=== PATIENT | male | born 1975 | race Hispanic/Latino ===

== ENCOUNTER 2020-06-05 16:53 | Inpatient (IN) | payer SELFPAY ==
[2020-06-05] VITALS (8 sets, daily range): BP systolic 101–174; BP diastolic 69–98; PULSE 78–93; RESP 14–22; TEMP 36.4–37.1; O2SAT 97–100; BMI 22.8
--- NOTE | ~2020-06-05 | CT_ITS ---
EXAMINATION: CT brain wo [facility] EXAM DATE: 06/05/2020 18:26 INDICATION: Dizziness. Weakness, elevated blood sugar. TECHNIQUE: Spiral CT of the head was performed without contrast. Axial, coronal and sagittal images were reviewed. The dose-length product (DLP) for this examination was 605.33 mGy-cm. The exposure w as tailored according to patient size, and iterative reconstruction (ASIR) was used as additional dos e reduction technique. Comparison is made to prior examination from 05/30/2020. FINDINGS: There is no acute intraparenchymal hemorrhage. No evidence of intraparenchymal brain mass lesion. No evidence of acute infarction. There is no mass effect or midline shift. The ventricles are normal in size. There are no extra-axial collections. There are no acute calvarial fractures. T he orbits are unremarkable. Soft tissue is unremarkable. The visualized sinuses and mastoid air mali ls are well aerated. IMPRESSION: 1. No acute intracranial findings. Reviewed, dictated and finalized at location A.
--- NOTE | ~2020-06-05 | CT_ITS ---
EXAMINATION: CTA brain carotid DATE: 06/07/2020 19:26 INDICATION: Brainstem stroke. TECHNIQUE: Computed tomographic angiography (CTA) of the head was performed without and with 100 mL O mnipaque-350 intravenous contrast. CTA of the neck was performed with intravenous contrast. The dose- length product was 1690.24 mGy-cm. Maximum intensity projection and volume rendered 3D-reconstruction s were created by the technologist on a separate workstation. COMPARISON: Head CT 06/05/2020, brain MRI 06/06/2020 FINDINGS: HEAD CTA: There is no intracranial hemorrhage, acute infarction, or abnormal intracranial mass lesion . The ventricles are normal in size. The mastoid air cells are normal. There is mild mucosal thickeni ng in the paranasal sinuses. The orbits are normal. Left vertebral artery is dominant. There is no si gnificant stenosis of basilar artery or the posterior cerebral arteries. There is no significant sten osis of the intracranial internal carotid arteries or anterior or middle cerebral arteries. Anterior communicating artery is normal. The posterior communicating arteries are normal. There is no aneurysm . NECK CTA: There are no pathologically enlarged lymph nodes. There is no significant stenosis of the v ertebral arteries. There is plaque in the proximal internal carotid arteries. There is 0% stenosis of the proximal right internal carotid artery relative to normal distal artery lumen diameter (NASCET c riteria). There is 38% stenosis of the proximal left internal carotid artery relative to normal dista l artery lumen diameter. Tooth 30 demonstrates periapical lucencies. Tooth 19 demonstrate a carious l esion and periapical lucencies. There is mild cervical spondylosis. IMPRESSION: 1. Normal brain. No aneurysm or significant intracranial internal stenosis. 2. 0% stenosis of the proximal right internal carotid artery relative to normal distal artery lumen d iameter (NASCET criteria). 3. 38% stenosis of the proximal left internal carotid artery relative to normal distal artery lumen d iameter. 4. Dental disease. Reviewed, dictated and finalized at location A. IMPRESSION: 1. Normal brain. No aneurysm or significant intracranial internal stenosis. 2. 0% stenosis of the proximal right internal carotid artery relative to normal distal artery lumen diameter (NASCET criteria). 3. 38% stenosis of the proximal left internal carotid artery relative to normal distal artery lumen diameter. 4. Dental disease.
--- NOTE | ~2020-06-05 | MR_ITS ---
EXAMINATION: MR brain IAC wo/w con DATE: 06/08/2020 10:18 INDICATION: Brainstem stroke. TECHNIQUE: Magnetic resonance imaging (MRI) of the brain, brainstem, and internal auditory canals was performed without and with 13 mL MultiHance intravenous contrast. Sequences included sagittal and ax ial T1-weighted FSE, axial diffusion-weighted FS EPI, axial T2*-weighted GRE, axial T2-weighted FLAIR Propeller, axial T2-weighted Propeller, small ebcib-zu-iywj coronal FIESTA, small ozmwd-ae-fttz jimmy nal T1-weighted FSE, and small pqsaq-rk-hvdg axial T1-weighted SPGR. Postcontrast sequences included axial T1-weighted FSE, small hrolj-tx-jcay coronal T1-weighted FSE, and small qzonk-zd-iyed axial T1- weighted SPGR. Apparent diffusion coefficient (ADC) maps were created. COMPARISON: Brain MRI 06/06/2020, head CT 06/07/2020 FINDINGS: There is increased T2-weighted signal intensity in the jadyn with sparing of the periphery a nd involvement of the corticospinal tracts. There is no intracranial hemorrhage, acute infarction, or abnormal intracranial mass lesion. The ventricles are normal in size. The orbits are normal. There i s mild mucosal thickening in the paranasal sinuses. The mastoid air cells are normal. IMPRESSION: 1. 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 Reviewed, dictated and finalized at location A. IMPRESSION: 1. Stable pontine disease, which may be osmotic demyelination syndrome or chron ic small vessel ischemic disease.
--- NOTE | ~2020-06-05 | XR_ITS ---
EXAMINATION: XR chest 1V portable EXAM DATE: 06/05/2020 18:34 INDICATION: Cough, weakness, elevated blood sugar. TECHNIQUE: Portable AP frontal chest x-ray was obtained. Comparison is made to prior examination from 05/30/2020. FINDINGS: The lungs are clear. There are no pleural effusions. Cardiac silhouette is prominent but magnified on this AP technique. There is no pneumothorax suspected. The bones and soft tissues are unremarkable. There is no significant interval change. IMPRESSION: No acute cardiopulmonary findings. Reviewed, dictated and finalized at location A.
--- NOTE | ~2020-06-05 | MR_ITS ---
EXAMINATION: MR brain/brain stem wo/w con EXAM DATE: 06/06/2020 10:27 INDICATION: Weakness in legs, blurred vision. TECHNIQUE: Magnetic resonance imaging (MRI) of the brain/brain stem obtained without contrast. Sagit wili T1, axial diffusion, gradient echo (T2*), T1, T2, FLAIR sequences obtained. Patient was then inj ected with 13 cc intravenous Multihance contrast. Axial and coronal postcontrast T1 weighted sequence s obtained. Correlation is made to head CT from 06/05/2020. FINDINGS: Symmetric vaguely increased T2 signal intensity within the jadyn bilaterally. Could be eithe r artifactual given that this is subtle finding. Mild pontine myelolysis would be another considerati on in the appropriate clinical setting. There are no areas of restricted diffusion to suggest acute infarction. There is no acute hemorrhage seen on the T2*, a hemosiderin sensitive sequence. No intraparenchymal brain mass. The ventricles a re normal in size. There are no extra-axial collections. Flow voids are seen in the cerebral arteri es on the T2-weighted sequences consistent with their expected patency. The orbits are unremarkable. Soft tissue is unremarkable. IMPRESSION: Vaguely increased symmetric T2 signal intensity within jadyn, could be artifactual or mild pontine myelolysis in the appropriate clinical setting. Reviewed, dictated and finalized at location G.
[2020-06-05 17:06] LABS: Glucose Point of Care > 500 (65-105)
[2020-06-05 17:23] LABS: Basophils Absolute Auto 0.1 K/mm3 (0.0-0.1); Basophils Percent Auto 0.5 % (0.2-1.2); Eosinophils Absolute Auto 0.2 K/mm3 (0-0.3); Eosinophils Percent Auto 2.6 % (0-4.4); Hematocrit 37.3 % (42.0-52.0); Hemoglobin 13.1 g/dL (14.0-18.0); Immature Granulocyte Absolute 0.02 K/mm3 (0.00-0.031); Immature Granulocyte Percent A 0.2 % (0-0.5); Lymphocytes Absolute Auto 2.49 K/mm3 (0.9-3.2); Lymphocytes Percent Auto 27.2 % (18.3-44.2); Mean Corpuscular HGB Conc 35.1 g/dl (32-36); Mean Corpuscular Hemoglobin 31.4 pg (26-34); Mean Corpuscular Volume 89.4 fl (80-100); Monocytes Absolute Auto 0.7 K/mm3 (0.1-0.6); Monocytes Percent Auto 7.7 % (2.6-8.5); Neutrophils Absolute Auto 5.6 K/mm3 (1.3-6.7); Neutrophils Percent Auto 61.8 % (45.5-73.1); Platelet Count Result 289 k/mm3 (150-375); Red Blood Count 4.17 M/mm3 (4.6-6.20); Red Cell Distribution Width 11.8 % (11.5-14.5); White Blood Count 9.1 K/mm3 (4.5-10.0)
[2020-06-05 17:26] LABS: Add Urine Microscopic? YES; Appearance Urine Clear (Clear); Bilirubin Urine Negative (Negative); Blood Urine Negative (Negative); Color Urine Straw (Yellow); Glucose Urine UA 3+ mg/dL (Negative); Ketones Urine Negative (Negative); Leukocyte Esterase Ur Negative LEU/UL (Negative); Nitrate Urine Negative (Negative); Protein Urine Negative (Negative); RBC Urine 0-2 /hpf (0-2); Specific Grav Ur 1.027 (1.001-1.035); Squamous Epithelial Cell Urine Rare /hpf (Few); Urobilinogen Urine Negative mg/dL (<2.0); WBC Urine 0-3 /hpf
[2020-06-05 17:39] LABS: Alanine Aminotransferase 19 U/L (4-50); Alkaline Phosphatase 110 U/L (38-126); Anion Gap 16.5 mmol/L (7-16); Aspartate Amino Transferase 24 U/L (17-59); Bilirubin,Total 0.4 mg/dL (0.2-1.3); Blood Urea Nitrogen 41 mg/dL (9-20); Calcium 9.3 mg/dL (8.4-10.2); Carbon Dioxide 23 mmol/L (22-30); Chloride 96 mmol/L (98-107); Estimated CRCL calculation 66 ml/min; Estimated Glomerular Filt Rate > 60; Glucose 560 mg/dL (75-110); Lipase 250 U/L (23-300); Potassium 4.5 mmol/L (3.4-5.0); Sodium 131 mmol/L (137-145)
[2020-06-05] MEDS: SODIUM CHLORIDE 0.9% IV 1,000 ML 999 ML IV CONT ×2 (17:56→19:00)
--- NOTE | 2020-06-05 18:10 | ECG_ITS ---
Measurements Intervals [place] Rate: 86 P: 12 [place]: 161 QRS: -23 QRSD: 89 T: -5 QT: 389 QTc: 466 Interpretive Statements SINUS RHYTHM DELAYED PRECORDIAL R/S TRANSITION LOW QRS VOLTAGE IN PRECORDIAL LEADS VOLTAGE CRITERIA FOR LVH MINIMAL Q WAVES- HIGH LATERAL LEADS BASELINE WANDER- AVL, AVF, V3-V4 BORDERLINE ECG Electronically Signed On 06-05-2020 19:49:16 CDT by Caesar Zapata D.O.
--- NOTE | 2020-06-05 18:10 | ED.GENADULT ---
HPI - General Adult General Chief complaint: Weakness Stated complaint: Lethergy, Dizzy Time Seen by Provider: 06/05/20 17:51 Source: RN notes reviewed History of Present Illness HPI narrative: Patient presents emergency department from home for weakness. Patient states that for the past 5 weeks he has had weakness in his legs and tends to list to the side when he walks. He states that during this time his blood sugars have been elevated. He states he is on metformin thousand milligrams twice daily which she has been taking but continues to have elevated blood sugars. Patient states he is followed by PCP at [facility]. He denies having fevers or chills chest pain shortness of breath abdominal pain nausea vomiting or any other symptoms. Related Data Home Medications Medication Instructions Recorded Confirmed metformin 1,000 mg PO BID 06/05/20 06/05/20 Allergies Allergy/AdvReac Type Severity Reaction Status Date / Time No Known Allergies Allergy Verified 06/05/20 17:39 Review of Systems Review of Systems: Narrative: Gen.: Denies fevers or chills Eyes: Denies eye pain or visual change ENT: Denies congestion Respiratory: Denies shortness of breath or cough CV: Denies chest pain or palpitations GI: Denies abdominal pain nausea, emesis or diarrhea denies burning, urgency, frequency or hematuria Musculoskeletal: Denies back pain or muscle pain Neuro: See HPI Skin: Denies rash Endocrine: Reports diabetes with hyperglycemia Except as documented, all other systems reviewed and negative [facility] Past Medical History Medical History (Updated 06/05/20 @ 18:52 by Kendall Meza DO) Diabetes mellitus Social History Social History (Updated 06/05/20 @ 18:11 by Kendall Meza DO) Smoking status: Never smoker Exam Narrative: Exam Narrative: APPEARANCE: No acute distress, nontoxic, resting in bed EYES: EOMI HEENT: Normocephalic, atraumatic, OMM RESPIRATORY: No respiratory distress Clear to auscultation bilaterally with no rhonchi wheezing or rales. CARDIOVASCULAR: Regular rate and rhythm without murmurs rubs or gallops. ABDOMINAL: Soft, nontender, nondistended, no rebound or guarding MUSCULOSKELETAl: Moves all extremities. No clubbing, cyanosis or edema. NEURO: Awake and alert x 3. Following commands, speech normal, no focal deficits, no facial droop, muscle strength 5 out of 5 in the bilateral upper and lower extremities SKIN:: Warm, dry. No rashes lesions or abrasions PSYCHIATRIC: Normal affect/mood, Course Course Emergency Course: Discussed with AURE Denny presentation work-up. Agrees with admission at this time. Request patient be started on insulin aspart 6 units at this time agrees with plan for admission. Agrees with plan for MRI with gait instability Discussed with patient and family results of workup and diagnosis. Discussed need for admission. Patient and family understand and agree to current treatment plan Vital Signs Vital signs: Vital Signs Temperature 98.8 F 06/05/20 17:04 Pulse Rate 93 06/05/20 17:04 Respiratory Rate 18 06/05/20 17:04 Blood Pressure 129/84 06/05/20 17:04 Pulse Oximetry 100 06/05/20 17:04 Temperature 98.8 F 06/05/20 17:04 Pulse Rate 78 06/05/20 18:45 Respiratory Rate 14 06/05/20 18:45 Blood Pressure 171/89 H 06/05/20 18:45 Pulse Oximetry 100 06/05/20 18:45 Medical Decision Making Vital Signs Vital Signs: Vital Signs Temperature 98.8 F 06/05/20 17:04 Pulse Rate 93 06/05/20 17:04 Respiratory Rate 18 06/05/20 17:04 Blood Pressure 129/84 06/05/20 17:04 Pulse Oximetry 100 06/05/20 17:04 Temperature 98.8 F 06/05/20 17:04 Pulse Rate 78 06/05/20 18:45 Respiratory Rate 14 06/05/20 18:45 Blood Pressure 171/89 H 06/05/20 18:45 Pulse Oximetry 100 06/05/20 18:45 Lab Data Result diagrams: 06/05/20 17:03 06/05/20 17:03 Labs: Lab Results 06/05/20 06/05/20
[2020-06-05 18:37] LABS: Glucose Point of Care 401 (65-105)
[2020-06-05] MEDS: INSULIN ASPART (*BKC) 100 UNITS/ML 6 UNITS SUB-Q (18:56)
[2020-06-05 19:31] LABS: Glucose Point of Care 337 (65-105)
--- NOTE | 2020-06-05 20:05 | ADMGEN ---
This patient, Jamil Gallo, was admitted to [facility] Surg Room 321-01. Patient/family oriented to hospital policies and general routines including ID bracelet, bed and alarms, visiting hours, pain management, procedures, bathroom and other care routines, personal items, smoking policy, room service/diet, and visiting hours. Valuables list has been completed. Information on how to activate the Rapid Response Team has been discussed. Patient/Family are encouraged to report perceived risks to care and to ask questions if they do not understand what they are told or what they should do.
[2020-06-05] MEDS: SODIUM CHLORIDE 0.9% IV 1,000 ML 125 ML IV CONT (23:35)
[2020-06-05 23:41] LABS: Glucose Point of Care 264 (65-105)
[2020-06-06] VITALS (7 sets, daily range): BP systolic 145–159; BP diastolic 92–96; PULSE 73–90; RESP 16–18; TEMP 36.5–36.6; O2SAT 99–100
[2020-06-06 06:32] LABS: Basophils Percent Auto 0.5 % (0.2-1.2); Eosinophils Absolute Auto 0.3 K/mm3 (0-0.3); Eosinophils Percent Auto 3.6 % (0-4.4); Hematocrit 35.8 % (42.0-52.0); Hemoglobin 12.8 g/dL (14.0-18.0); Immature Granulocyte Absolute 0.02 K/mm3 (0.00-0.031); Immature Granulocyte Percent A 0.2 % (0-0.5); Lymphocytes Absolute Auto 3.01 K/mm3 (0.9-3.2); Lymphocytes Percent Auto 36.2 % (18.3-44.2); Mean Corpuscular HGB Conc 35.8 g/dl (32-36); Mean Corpuscular Hemoglobin 31.5 pg (26-34); Mean Corpuscular Volume 88.2 fl (80-100); Mean Platelet Volume 9.4 fl (7.4-10.4); Monocytes Absolute Auto 0.9 K/mm3 (0.1-0.6); Monocytes Percent Auto 10.3 % (2.6-8.5); Neutrophils Absolute Auto 4.1 K/mm3 (1.3-6.7); Neutrophils Percent Auto 49.2 % (45.5-73.1); Platelet Count Result 258 k/mm3 (150-375); Red Blood Count 4.06 M/mm3 (4.6-6.20); Red Cell Distribution Width 11.5 % (11.5-14.5); White Blood Count 8.3 K/mm3 (4.5-10.0)
[2020-06-06 07:15] LABS: Alanine Aminotransferase 15 U/L (4-50); Albumin Level 3.4 g/dL (3.5-5.1); Alkaline Phosphatase 82 U/L (38-126); Anion Gap 10.1 mmol/L (7-16); Aspartate Amino Transferase 19 U/L (17-59); Bilirubin,Total 0.4 mg/dL (0.2-1.3); Blood Urea Nitrogen 23 mg/dL (9-20); Calcium 8.6 mg/dL (8.4-10.2); Carbon Dioxide 26 mmol/L (22-30); Chloride 102 mmol/L (98-107); Estimated CRCL calculation 109 ml/min; Estimated Glomerular Filt Rate > 60; Glucose 305 mg/dL (75-110); Potassium 4.1 mmol/L (3.4-5.0); Sodium 134 mmol/L (137-145)
[2020-06-06 08:42] LABS: Glucose Point of Care 318 (65-105)
--- NOTE | 2020-06-06 09:00 | PM.IMHP ---
H&P: HPI History of Present Illness Chief complaint: Weakness Narrative: date and time of patient contact: 06/06/2020 at 4:45 a.m. Source of information: I was unaware the patient was [place]ar[place]-speaking until arrived to his room. Before I could arrange generator worker services the patient had called his family member who agreed to translate. Further information was obtained to ER records. Jamil Gallo is a 44 year old [place]arag[place]-speaking male with a past medical history of poorly controlled diabetes who presented to the ER with weakness. the patient has evidently had progressive weakness for the last 5 weeks. He has been checking his Blood sugars at home and they had been running high with glucoses in the 3 and 400s despite taking his metformin as directed. He has been on metformin a 1000 mg twice a day for a long time. The metformin is associated with chronic diarrheal stools. He reports that his stools are watery. He denies any abdominal pain, hematochezia or melena. Along with his other symptoms he has become progressively more weak. He feels as if his legs are going to give out from under him. The ER provider documented that the patient tended to list to the side when he walked. I was unable to clarify this with the patient due to language barrier. He denies having actually fallen. He has had will worsening of his peripheral neuropathy in notes decreased sensation. He has noticed increased blurriness in his vision. He has not been evaluated by an eye doctor in many years. He reports that he has a good appetite but has been having difficulty swallowing both liquids and solids. His he reports that food will feel like it is stuck in that he will left the vomit the food to clear it. He reports a will sometimes have to vomit because he cannot swallow liquids. He has been getting his medications from a [facility] and [place]. He states that he does not have a primary physician and does not have insurance. Review of Systems Review of Systems: Narrative: 12 systems were reviewed with pertinent positives and negatives per HPI. Except as documented in the HPI, all other systems were reviewed and are negative. [facility] Past Medical History Medical History (Updated 06/06/20 @ 09:04 by Marialuisa Toledo DO) Diabetes mellitus Diabetic peripheral neuropathy Surgical History Surgical History (Updated 06/06/20 @ 09:04 by Marialuisa Toledo DO) Amputated great toe of right foot Family History Family History Father Alcoholic cirrhosis Mother No problems noted. Social History Social History Smoking status: Light tobacco smoker Tobacco type: cigarettes Alcohol intake: current Drinks per week: 1 Substance use: never Spiritual care concerns: No Meds Home Medications and Allergies Home Medications Medication Instructions Recorded Confirmed Type metformin 1,000 mg PO BID 06/05/20 06/05/20 History Allergies Allergy/AdvReac Type Severity Reaction Status Date / Time No Known Allergies Allergy Verified 06/05/20 17:39 Vital Signs Vital Signs - 24 hr 06/05/20 17:04 06/05/20 17:43 06/05/20 18:17 Temperature 98.8 F Pulse Rate 93 88 78 Respiratory Rate 18 22 H Blood Pressure 129/84 134/85 Pulse Oximetry 100 97 06/05/20 18:45 06/05/20 19:07 06/05/20 19:09 Temperature Pulse Rate 78 87 87 Respiratory Rate 14 Blood Pressure 171/89 H 125/93 H 101/69 Pulse Oximetry 100 06/05/20 20:14 06/05/20 22:00 06/06/20 04:00 Temperature 97.6 F 97.7 F Pulse Rate 85 84 73 Respiratory Rate 16 16 Blood Pressure 174/98 H 148/90 H Pulse Oximetry 100 100 06/06/20 06:00 Temperature 97.7 F Pulse Rate 74 Respiratory Rate 16 Blood Pressure 145/92 H Pulse Oximetry 100 Exam Narrative: Exam Narrative: PHYSICAL EXAM: WEIGHT 68.1 kg BMI 22
[2020-06-06] MEDS: INSULIN ASPART (*BKC) 100 UNITS/ML SUB-Q ×3 (09:13→18:09)
[2020-06-06] MEDS: SODIUM CHLORIDE 0.9% IV 1,000 ML 125 ML IV CONT (10:53)
[2020-06-06 12:16] LABS: Glucose Point of Care 286 (65-105)
[2020-06-06] MEDS: FAMOTIDINE 20 MG/2 ML VIAL IV PUSH ×2 (12:34→21:05)
[2020-06-06] MEDS: GLIMEPIRIDE 1 MG TABLET PO (12:34)
[2020-06-06 17:31] LABS: Glucose Point of Care 213 (65-105)
--- NOTE | 2020-06-06 18:16 | PM.IMPN ---
Progress Note: A&P Assessment and Plan (1) MRI of brain abnormal: Code(s): R90.89 - Other abnormal findings on diagnostic imaging of central nervous system Status: Acute Assessment and Plan: Brain MRI demonstrated vaguely increased symmetric T2 signal intensity within the jadyn which could be artifact or mild pontinue myelolysis. He reports the onset of several symptoms 5 weeks ago including gait instability with difficulty with balance/coordination, difficulty articulating words due to the sensation of tongue twisting , and dysphagia. He denies recent hospitalization or precipitating event at that time. I have no prior labs for review. He did have a COVID-19 infection 03/17/20. Will plan to discuss additional imaging options for further evaluation with the radiologist. Will consult neurology for additional input. (2) Gait instability: Code(s): R26.81 - Unsteadiness on feet Status: Acute Assessment and Plan: May be secondary to MRI findings as discussed above with plan as above. He also has peripheral neuropathy. Obtain PT/OT consult. Check vitamin B12 and folate levels. Improve glycemic control. (3) Diabetes mellitus with hyperglycemia: Code(s): E11.65 - Type 2 diabetes mellitus with hyperglycemia Status: Acute Assessment and Plan: The patient reports poor glycemic control on metformin. He takes this as prescribed but notes diarrhea. He does not have a primary care provider or health insurance. He has many barriers to achieving adequate glucose control. Case management has been consulted for input regarding financial assistance programs. Metformin was discontinued and glimepiride was initiated as this medication is on the $4 list. Januvia was initiated but cost may be an issue. The assistant health educator has been consulted as well. Blood sugars were reviewed and are improving but are still elevated. Plan to add low dose lantus. Continue ACHS glucose monitoring, sliding scale insulin, and hypoglycemia protocol. He will need an eye exam and he will also need to see a desk officer outpatient. Plan to check hemoglobin A1c. (4) Dysphagia: Code(s): R13.10 - Dysphagia, unspecified Status: Acute Assessment and Plan: Possibly secondary to MRI findings as above. Change diet to full liquid diet and await bedside swallow evaluation by speech language pathology. Continue pepcid IV BID. Gastroenterology has been consulted and recommendations are appreciated. (5) DVT prophylaxis: Code(s): Z29.9 - Encounter for prophylactic measures, unspecified Status: Acute Assessment and Plan: Continue SCDs. Time Spent With Patient Time with patient: Greater than 35 minutes Subjective Date/time seen: 06/06/20 18:16 Interval history: Mr. Moralez is a 44 y.o. male who is seen in follow-up for generalized weakness with unsteady gait, mild right lower extremity weakness, and dysphagia. He is barbadian-speaking and he is seen in consultation with the virtual construction plumber. He reports that his symptoms of weakness and dysphagia started 5 weeks ago. He reports no recent hospitalizations. He reports that his tongue feels twisted causing speech difficulty and notes dsyphagia with solid foods which requires him to drink water in order to swallow. He reports chronic neuropathy in the feet. He reports vision blurring when his blood sugars are high. He denies chest pain and dyspnea. He denies nausea, vomiting, and abdominal pain. He reports occasional mild headache. He reports very poor glucose control despite taking his metformin as prescribed. He requests to have an eye exam as he feels that he needs glasses. He does not have a primary care doctor and follows at a clinic in [place] for medication refills. He reports occasional rhinorrhea. Review of Systems Review of Systems: All systems reviewed & are unremarkable except as noted in HPI and below Exam Narrative: Exam
[2020-06-06 21:36] LABS: Glucose Point of Care 276 (65-105)
[2020-06-07] VITALS (10 sets, daily range): BP systolic 95–153; BP diastolic 64–96; PULSE 64–94; RESP 16–18; TEMP 36.5–36.7; O2SAT 100
[2020-06-07 06:38] LABS: Hematocrit 38.7 % (42.0-52.0); Hemoglobin 13.8 g/dL (14.0-18.0); Mean Corpuscular HGB Conc 35.7 g/dl (32-36); Mean Corpuscular Hemoglobin 31.4 pg (26-34); Mean Corpuscular Volume 88.2 fl (80-100); Mean Platelet Volume 9.9 fl (7.4-10.4); Platelet Count Result 278 k/mm3 (150-375); Red Blood Count 4.39 M/mm3 (4.6-6.20); Red Cell Distribution Width 11.7 % (11.5-14.5); White Blood Count 7.9 K/mm3 (4.5-10.0)
[2020-06-07 07:05] LABS: Anion Gap 11.9 mmol/L (7-16); Blood Urea Nitrogen 16 mg/dL (9-20); Calcium 8.7 mg/dL (8.4-10.2); Carbon Dioxide 27 mmol/L (22-30); Chloride 101 mmol/L (98-107); Estimated CRCL calculation 109 ml/min; Estimated Glomerular Filt Rate > 60; Glucose 273 mg/dL (75-110); Magnesium 1.6 mg/dL (1.6-2.3); Potassium 3.9 mmol/L (3.4-5.0); Sodium 136 mmol/L (137-145)
[2020-06-07 08:15] LABS: Glucose Point of Care 294 (65-105)
[2020-06-07] MEDS: lisinopriL 10 MG TABLET PO (09:33)
[2020-06-07] MEDS: GLIMEPIRIDE 1 MG TABLET PO (09:33)
[2020-06-07] MEDS: FAMOTIDINE 20 MG/2 ML VIAL IV PUSH ×2 (09:33→20:14)
--- NOTE | 2020-06-07 09:58 | PCSTNOTE ---
Bedside swallow evaluation completed. Please see ST evaluation for detailed results and recommendations.
[2020-06-07 10:21] LABS: Creatine Kinase 38 U/L (55-170)
--- NOTE | 2020-06-07 10:31 | WPDGICN ---
Assessment and Plan Assessment and plan (1) Dysphagia: Code(s): R13.10 - Dysphagia, unspecified Status: Acute Assessment and Plan: will proceed with EGD tomorrow to assess if esophagitis, stricture, etc (2) Diabetes mellitus with hyperglycemia: Code(s): E11.65 - Type 2 diabetes mellitus with hyperglycemia Status: Acute Assessment and Plan: on insulin, by medical teatm (3) Gait instability: Code(s): R26.81 - Unsteadiness on feet Status: Acute Assessment and Plan: improved GI Consult Note Consult date/time: 06/07/20 10:31 Reason for consult: dysphagia HPI: Jamil Gallo is a 44 year old male with history of uncontrolled DM, also [place] speaking (interview was done in [place]) and non-compliance because lack of insurance and unable to afford medications using metformin that gives him diarrhea sometimes, he is not taking insulin. He came here with generalized weakness, numbness and unsteady gait. His glucose on admission was over 500. CT brain was negative. He also says that food will feel like it is stuck in chest with both solids and liquids and sometimes have to vomit because he cannot swallow liquids. He never had EGD. He is feeling better now that glucose is in 200's Review of Systems Constitutional: Constitutional: Denies headache(s) and Reports weakness ENT: Reports Normal hearing present, Denies headache(s) and Denies neck pain Cardiovascular: Cardiovascular: Denies chest pain and Denies dyspnea Respiratory: Respiratory: Denies dyspnea Gastrointestinal: Gastrointestinal: Reports no additional gastrointestinal complaints Genitourinary: Genitourinary: Denies dysuria Musculoskeletal: Musculoskeletal: Denies neck pain Integumentary/Breasts: Skin/Breast: Denies dry skin Neurologic: Reports Normal hearing present, Reports abnormal gait, Reports numbness and Denies weakness Psychiatric: Psychiatric: Denies anxiety Endocrine: Endocrine: Reports polydipsia Hematologic/Lymphatic: Hematologic/Lymphatic: Denies easy bleeding Allergic/Immunologic: Allergic/Immunologic: Denies urticaria PMFSH Past Medical History Medical History (Updated 06/07/20 @ 08:50 by Olga Andrade PA-C) Diabetes mellitus Diabetic peripheral neuropathy Surgical History Surgical History (Updated 06/06/20 @ 09:04 by Marialuisa Toledo DO) Amputated great toe of right foot Family History Family History Father Alcoholic cirrhosis Mother No problems noted. Social History Social History Smoking status: Light tobacco smoker Tobacco type: cigarettes Alcohol intake: current Drinks per week: 1 Substance use: never Spiritual care concerns: No Meds Home Medications and Allergies Home Medications Medication Instructions Recorded Confirmed Type metformin 1,000 mg PO BID 06/05/20 06/05/20 History Allergies Allergy/AdvReac Type Severity Reaction Status Date / Time No Known Allergies Allergy Verified 06/05/20 17:39 Vital Signs Vital Signs - 24 hr 06/06/20 12:00 06/06/20 14:00 06/06/20 16:00 Temperature 97.9 F Pulse Rate 82 73 90 Respiratory Rate 18 Blood Pressure 152/95 H Pulse Oximetry 99 06/06/20 20:00 06/06/20 22:04 06/07/20 00:00 Temperature 97.8 F Pulse Rate 85 85 81 Respiratory Rate 16 16 Blood Pressure 159/96 H Pulse Oximetry 100 100 06/07/20 04:00 06/07/20 06:00 06/07/20 08:00 Temperature 97.8 F Pulse Rate 76 64 94 Respiratory Rate 16 Blood Pressure 124/89 Pulse Oximetry 100 Exam Const: General: comfortable and no acute distress HENMT: General nose exam: Normal nares present Eyes: General: appearance normal, both eyes and all related structures Neck: Neck: no JVD Resp: Auscultation: clear to auscultation bilaterally Cardio: Rate: regular
[2020-06-07 11:47] LABS: Glucose Point of Care 349 (65-105)
[2020-06-07] MEDS: ASPIRIN 81 MG ENTERIC TABLET PO (11:52)
[2020-06-07] MEDS: INSULIN ASPART (*BKC) 100 UNITS/ML SUB-Q ×2 (11:52→18:05)
[2020-06-07] MEDS: CLOPIDOGREL BISULFATE 75 MG TABLET PO (11:52)
--- NOTE | 2020-06-07 16:12 | PM.IMPN ---
Progress Note: A&P Assessment and Plan (1) Cerebellar dysfunction: Code(s): G93.40 - Encephalopathy, unspecified Status: Acute Assessment and Plan: Brain MRI demonstrated vaguely increased symmetric T2 signal intensity within the jadyn which could be artifact or mild pontinue myelolysis. He reports the onset of several symptoms 5 weeks ago including gait instability with difficulty with balance/coordination, difficulty articulating words due to the sensation of tongue twisting , and dysphagia. He denies recent hospitalization or precipitating event at that time. I have no prior labs for review. He did have a COVID-19 infection 03/17/20. He reports alcohol use and binge drinks on the weekends up to 12-13 beers at a time. He is a poorly controlled diabetic and does not follow with primary care. He was seen in consultation by neurology. He has evidence of dysmetria with abnormal finger to nose testing with overshooting. He has gait ataxia as well. He reports that his symptoms are improving. Plan to obtain an echocardiogram with bubble study and carotid doppler US. Obtain MRI IAC for better brainstem evaluation and CTA head and neck. Begin ASA and palvix per neurology recommendations. (2) Gait instability: Code(s): R26.81 - Unsteadiness on feet Status: Acute Assessment and Plan: May be secondary to MRI findings as discussed above with plan as above. He also has peripheral neuropathy. PT/OT were consulted and additional services were not felt to be indicated. Vitamin B12 and folate levels are pending as there is an issue with the machine in lab. Improve glycemic control. (3) Diabetes mellitus with hyperglycemia: Code(s): E11.65 - Type 2 diabetes mellitus with hyperglycemia Status: Acute Assessment and Plan: The patient reports poor glycemic control on metformin. He was taking this as prescribed prior to admission but notes diarrhea. He does not have a primary care provider or health insurance. He has many barriers to achieving adequate glucose control. Case management has been consulted for input regarding financial assistance programs. Metformin was discontinued and glimepiride was initiated as this medication is on the $4 list. Januvia was initiated but cost may be an issue. The patient educator has been consulted as well. Blood sugars were reviewed and are improving but are still elevated. Add insulin NPH-regular 70/30 since this should be more reasonable in moura. Increase glimepiride to 2mg. Continue ACHS glucose monitoring, sliding scale insulin, and hypoglycemia protocol. He will need an eye exam and he will also need to see a rn charge outpatient. Hemoglobin A1c was ordered and is pending. (4) Dysphagia: Code(s): R13.10 - Dysphagia, unspecified Status: Acute Assessment and Plan: Possibly secondary to MRI findings as above. He underwent evaluation by PRINCIPAL EXAMINER who recommended regular solids and thin liquids as he had no difficulties during his bedside evaluation. Continue pepcid IV BID. Gastroenterology has been consulted and he will undergo EGD tomororw. (5) Alcoholism: Code(s): F10.20 - Alcohol dependence, uncomplicated Status: Acute Assessment and Plan: Add folate and thiamine supplementation. Initiate CIWA protocol with PRN librium for CIWA >8. He has no sx of withdrawal appreciated at this time. Continue to encourage alcohol cessation. (6) DVT prophylaxis: Code(s): Z29.9 - Encounter for prophylactic measures, unspecified Status: Acute Assessment and Plan: Continue SCDs. Time Spent With Patient Time with patient: 15 - 25 minutes Subjective Date/time seen: 06/07/20 16:12 Interval history: Mr. Moralez is a 44 y.o. male who is seen in follow-up for generalized weakness with unsteady gait, mild right lower extremity weakness, and dysphagia. He is Portuguese-speaking and he is seen in consultation with the radha
[2020-06-07 17:43] LABS: Glucose Point of Care 231 (65-105)
--- NOTE | 2020-06-07 17:51 | WPDNEURCNPN ---
Assessment and Plan Assessment and plan (1) Cerebellar dysfunction: Code(s): G93.40 - Encephalopathy, unspecified Status: Acute (2) DVT prophylaxis: Code(s): Z29.9 - Encounter for prophylactic measures, unspecified Status: Acute (3) MRI of brain abnormal: Code(s): R90.89 - Other abnormal findings on diagnostic imaging of central nervous system Status: Acute (4) Dysphagia: Code(s): R13.10 - Dysphagia, unspecified Status: Acute (5) Diabetes mellitus with hyperglycemia: Code(s): E11.65 - Type 2 diabetes mellitus with hyperglycemia Status: Acute (6) Acute hyperglycemia: Code(s): R73.9 - Hyperglycemia, unspecified Status: Acute (7) Gait instability: Code(s): R26.81 - Unsteadiness on feet Status: Acute (8) Diabetes mellitus: Code(s): E11.9 - Type 2 diabetes mellitus without complications Status: Acute (9) Alcoholism: Code(s): F10.20 - Alcohol dependence, uncomplicated Status: Acute Additional Plan full workup for the stroke as have been ordered rest of the management as such Consult date: 06/07/20 Time Seen: 17:00 HPI: Jamil Gallo is a 44 year old male who is right-handed and the history was taken through the hourly sign language interpreter and as it goes and I understand that the patient has had difficulty walking gait ataxia along with some difficulty and swallowing and the brain MRI shows some finding which are quite waking at the pontine level he does except drinking generously he is a diabetic and hypertensive however has not been taking care of himself because he does not have any insurance and the does not have any family physician the symptoms have been present for several weeks at the time of the examination denies any headache he denies any double vision his dysphagia has improved however ataxia remains with him it is quite difficult to find out from him with a day he does have any sensory dysfunction or not Review of Systems Review of Systems: All systems reviewed & are unremarkable except as noted in HPI and below PMFSH Past Medical History Medical History Diabetes mellitus Diabetic peripheral neuropathy Surgical History Surgical History Amputated great toe of right foot Family History Family History Father Alcoholic cirrhosis Mother No problems noted. Social History Social History Smoking status: Light tobacco smoker Tobacco type: cigarettes Alcohol intake: current Alcohol use details: He drinks on the weekends and reports drinking 12-13 drinks during parties. He drinks occasionally during the week and reports only 1 drink/day during the week. Substance use: former Substance use type: marijuana, crack/cocaine and methamphetamine Living arrangements: with family Occupation/Education: unemployed Additional occupation/education comments: Previously worked at a [employer] Gender identity (if verbalized by the patient): Male Sexual Orientation (if Verbalized by the Patient): Straight or Heterosexual Spiritual care concerns: No Meds Home Medications and Allergies Home Medications Medication Instructions Recorded Confirmed Type metformin 1,000 mg PO BID 06/05/20 06/05/20 History Allergies Allergy/AdvReac Type Severity Reaction Status Date / Time No Known Allergies Allergy Verified 06/05/20 17:39 Vital Signs Vital Signs - 24 hr 06/06/20 20:00 06/06/20 22:04 06/07/20 00:00 Temperature 36.6 C Pulse Rate 85 85 81 Respiratory Rate 16 16 Blood Pressure 159/96 H Pulse Oximetry 100 100 06/07/20 04:00 06/07/20 06:00 06/07/20 08:00 Temperature 36.6 C Pulse Rate 76 64 94 Respiratory Rate 16 Blood Pressure 124/89 Pulse
[2020-06-07] MEDS: THIAMINE HCL 200 MG/2 ML VIAL 100 MG IV PUSH (18:06)
[2020-06-07 22:41] LABS: Glucose Point of Care 327 (65-105)
[2020-06-08] VITALS (13 sets, daily range): BP systolic 78–168; BP diastolic 43–96; PULSE 64–86; RESP 14–21; TEMP 36.1–36.7; O2SAT 99–100
--- NOTE | 2020-06-08 | ECHO_ITS ---
Patient Info Name: Jamil Gallo Age: 44 years : 1975 Gender: Male Ht: 68 in Wt: 150 lbs BSA: 1.81 m2 HR: 69 bpm BP: 148 / 86 mmHg Technical Quality: Good Exam Date: 06/08/2020 11:11 AM Exam Location: [facility] Exam Room: 321 Patient Status: Inpatient Admit Date: 06/07/2020 Staff Ordering Physician: Olga Andrade PA-C Buffet Attendant: Marlee Treviño RDCS Attending Provider: Olga Andrade PA-C Referring Physician: Raymond FIGUEROA; Exam Type: CA echo doppler w bubble study Study Info Complete two-dimensional, color flow and Doppler transthoracic echocardiogram is performed with agitated saline. Contrast/Agitated Saline Contrast/Ag. Saline: Agitated Saline Amount: 20.00 ml Administered By: Agustín Galvin, RN Summary 1. Left ventricular chamber dimension is normal. 2. Left ventricular systolic function is normal, estimated at 60-65%. 3. The left ventricular diastolic function is grade I diastolic dysfunction. 4. E/e' 8 is minimally elevated. 5. Global longitudinal strain is normal a t-18.5%. 6. Agitated saline injection opacified right sided cardiac chambers with and without valsalva maneuver, and only with valsalva maneuver a few bubbles crossed to left sided cardiac chambers suggesting small patent foramen ovale. Left Ventricle E/e' 8 is minimally elevated. Global longitudinal strain is normal a t-18.5%. Left ventricular chamber dimension is normal. Left ventricular systolic function is normal, estimated at 60-65%. The left ventricular diastolic function is grade I diastolic dysfunction. Right Ventricle Right ventricular chamber dimension is normal. Right ventricular systolic function is normal. Left Atria Left atrial chamber dimension is normal. Right Atria Right atrial chamber dimension is normal. Atrial Septum Agitated saline injection opacified right sided cardiac chambers with and without valsalva maneuver, and only with valsalva maneuver a few bubbles crossed to left sided cardiac chambers suggesting small patent foramen ovale. Suspected patent foramen ovale visualized by agitated saline imaging. No shunt by color doppler. Aortic Valve The aortic valve is trileaflet. There is no aortic valve stenosis. There is no aortic valve regurgitation. Pulmonic Valve There is trace pulmonic regurgitation. Mitral Valve There is no mitral valve stenosis. There is no mitral valve regurgitation. Tricuspid Valve There is trace tricuspid valve regurgitation. No pulmonary hypertension, estimated pulmonary arterial systolic pressure is 22 mmHg. Pericardium/Pleural There is no pericardial effusion. Inferior Vena Cava Normal inferior vena cava with >50% collapse upon inspiration consistent with normal right atrial pressure, 5 mmHg. Aorta The aortic root size at the sinus of Valsalva is normal. Left Ventricular Outflow Tract Name Value Normal LVOT 2D LVOT Diameter 2.0 cm LVOT Doppler LVOT Peak Gradient 3 mmHg LVOT Mean Gradient 2 mmHg
[2020-06-08 08:28] LABS: Glucose Point of Care 285 (65-105)
[2020-06-08 09:11] LABS: Anion Gap 11.2 mmol/L (7-16); Blood Urea Nitrogen 22 mg/dL (9-20); Calcium 9.9 mg/dL (8.4-10.2); Carbon Dioxide 28 mmol/L (22-30); Chloride 99 mmol/L (98-107); Estimated CRCL calculation 109 ml/min; Estimated Glomerular Filt Rate > 60; Glucose 310 mg/dL (75-110); Potassium 4.2 mmol/L (3.4-5.0); Sodium 134 mmol/L (137-145)
--- NOTE | 2020-06-08 09:59 | WPDNEUROPN ---
Progress Note: A&P Assessment and Plan (1) Alcoholism: Code(s): F10.20 - Alcohol dependence, uncomplicated Status: Acute (2) Diabetes mellitus with hyperglycemia: Code(s): E11.65 - Type 2 diabetes mellitus with hyperglycemia Status: Acute (3) Gait instability: Code(s): R26.81 - Unsteadiness on feet Status: Acute Additional Plan gait dysfunction of multiple factors as outlined Review of Systems Review of Systems: All systems reviewed & are unremarkable except as noted in HPI and below Exam Const: General: cooperative, comfortable and no acute distress HENMT: Ears: hearing grossly normal bilaterally General nose exam: Normal external nose present and No nasal discharge present Eyes: General: appearance normal, both eyes and all related structures Neck: Neck: full ROM Resp: Effort & Inspection: normal respiratory effort Cardio: Rate: regular rate Rhythm: regular rhythm Skin: General skin exam: no rashes or lesions noted Neuro: General: oriented to place Cranial nerves: Yes CN's II-XII intact bilaterally Cognition (Neuro): normal cognition Gait exam (Neuro): Other gait observations present (sense of ballance of) Sensory Exam: Sensory deficit (Neuro) Deep tendon reflexes (DTR's): Right ankle reflex intensity grade: 0 and Left ankle reflex intensity grade: 0 Plantar Reflex Responses: downgoing: bilateral Extrem: General: normal to inspection and full ROM Psych: Appearance: grossly normal Objective Data Vital Signs Vital Signs: Vital Signs - 24 hr 06/07/20 12:00 06/07/20 14:00 06/07/20 16:00 Temperature 36.5 C Pulse Rate 86 88 89 Respiratory Rate 18 Blood Pressure 95/64 L Pulse Oximetry 100 06/07/20 20:00 06/07/20 22:00 06/07/20 22:06 Temperature 36.7 C Pulse Rate 90 89 Respiratory Rate 18 Blood Pressure 153/96 H 148/86 H Pulse Oximetry 100 06/08/20 00:00 06/08/20 04:00 06/08/20 06:00 Temperature 36.4 C Pulse Rate 76 69 83 Respiratory Rate 18 Blood Pressure 121/83 Pulse Oximetry 99 Intake/Output Intake/Output: Intake & Output 06/05/20 06/06/20 06/07/20 06/08/20 23:59 23:59 23:59 23:59 Intake Total 1999 4540 3680 450 Output Total 2300 Balance 2000 2240 3680 450 Meds/Results Medications: Active Medications Generic Name Dose Route Start Last Admin Trade Name Freq PRN Reason Stop Dose Admin Aspirin 81 mg 06/07/20 09:00 06/07/20 11:52 Aspirin Ec PO 81 mg QAM [facility] Administration Chlordiazepoxide HCl 25 mg 06/07/20 17:26 Librium Po PO Q8H PRN PRN CIWA >8 Clopidogrel Bisulfate 75 mg 06/07/20 09:00 06/07/20 11:52 Plavix PO 75 mg QAM [facility] Administration Dextrose 12.5 gm 06/05/20 21:41 Dextrose 50% Syringe IV PUSH PRN PRN Hypoglycemia Protocol Famotidine 20 mg 06/06/20 09:00 06/07/20 20:14 Pepcid Iv IV PUSH 20 mg Q12HR [facility] Administration Folic Acid 1 mg 06/08/20 09:00 Folic Acid PO DAILY WEI Glimepiride 2 mg 06/08/20 08:00 Amaryl PO DAILY@0800 [facility] Glucagon 1 mg 06/05/20 21:41 Glucagon For Inj IM PRN PRN Hypoglycemia Protocol Glucose 15 gm 06/05/20 21:41 Glutose 15 PO PRN PRN Hypoglycemia Protocol Dextrose 1,000 mls @ 100 mls/hr 06/05/20 21:41 Dextrose 5% 1,000 Ml IVPB PRN PRN Hypoglycemia Protocol Insulin Aspart 4 - 8 units 06/07/20 12:00 06/07/20 18:05 Novolog SUB-Q 4 units TIDWM [facility] Administration Protocol Insulin Human NPH 8 units 06/08/20 06:30 SUB-Q BIDAC [facility] Lisinopril 5 mg 06/08/20 09:00 [facility] Sitagliptin Phosphate 50 mg 06/05/20 21:45 06/07/20 09:33 Januvia PO 50 mg QAM [facility] Administration Thiamine HCl 100 mg 06/08/20 09:00 [facility] B[facility] [place] Rad[facility] Results: ITS Impressions Head CT 06/05/20 18:32 IMPRESSION: 1. No acute intracranial find
[2020-06-08] MEDS: FAMOTIDINE 20 MG/2 ML VIAL IV PUSH (10:31)
[2020-06-08] MEDS: FOLIC ACID 1 MG TABLET PO (10:32)
[2020-06-08] MEDS: GLIMEPIRIDE 2 MG TABLET PO (10:32)
[2020-06-08] MEDS: INSULIN ASPART (*BKC) 100 UNITS/ML SUB-Q ×2 (10:32→18:17)
[2020-06-08] MEDS: THIAMINE HCL 100 MG TABLET PO (10:32)
[2020-06-08] MEDS: lisinopriL 5 MG TABLET PO (10:33)
[2020-06-08 11:52] LABS: Hemoglobin A1C 12.1 % (<5.7)
--- NOTE | 2020-06-08 11:59 | WPDANESEPPF ---
Anes - Initial Pre Proc Eval Procedure: Operation Date: 06/08/20 12:00 Proposed Procedures p Esophagogastroduodenoscopy - Bobby Madrid MD Date/Time: 06/08/20 11:59 Pre Op Diagnosis: Weakness Patient Data Age: 44 Gender: M Height: 1.73 m Weight: 68.1 kg Last Vital Signs Temp 36.4 C 06/08/20 06:00 Pulse 83 06/08/20 06:00 Resp 18 06/08/20 06:00 BP 121/83 06/08/20 06:00 Pulse Ox 99 06/08/20 06:00 Allergies Allergy/AdvReac Type Severity Reaction Status Date / Time No Known Allergies Allergy Verified 06/08/20 11:54 Home Medications Medication Instructions Recorded Confirmed Type metformin 1,000 mg PO BID 06/05/20 06/05/20 History Laboratory Tests 06/07/20 06/07/20 06/07/20 06:00 17:32 20:02 Sodium Potassium Chloride Carbon Dioxide Anion Gap BUN Creatinine Estim Creat Clear Calc Estimated GFR Glucose POC Capillary Glucose 231 mg/dl H mg/dl 327 mg/dl H mg/dl (65-105) (65-105) Hemoglobin A1c 12.1 % H % (<5.7) Calcium 06/08/20 06/08/20 08:23 08:42 Sodium 134 mmol/L L mmol/L (137-145) Potassium 4.2 mmol/L mmol/L (3.4-5.0) Chloride 99 mmol/L mmol/L (98-107) Carbon Dioxide 28 mmol/L mmol/L (22-30) Anion Gap 11.2 mmol/L mmol/L (7-16) BUN 22 mg/dL H mg/dL (9-20) Creatinine 0.70 mg/dL mg/dL (0.7-1.3) Estim Creat Clear Calc 109 ml/min ml/min Estimated GFR > 60 (59 - ) Glucose 310 mg/dL H mg/dL (75-110) POC Capillary Glucose 285 mg/dl H mg/dl (65-105) Hemoglobin A1c Calcium 9.9 mg/dL mg/dL (8.4-10.2) Patient hx anesthesia problems: none Family hx anesthesia problems: none PMFSH Past Medical History Medical History (Updated 06/08/20 @ 12:00 by Segundo Rose MD) Alcoholism Cerebellar dysfunction Depression Diabetes mellitus Diabetic peripheral neuropathy Dysphagia Gait instability Surgical History Surgical History Amputated great toe of right foot Family History Family History Father Alcoholic cirrhosis Mother No problems noted. Social History Social History Smoking status: Light tobacco smoker Tobacco type: cigarettes Alcohol intake: current Alcohol use details: He drinks on the weekends and reports drinking 12-13 drinks during parties. He drinks occasionally during the week and reports only 1 drink/day during the week. Substance use: former Substance use type: marijuana, crack/cocaine and methamphetamine Living arrangements: with family Occupation/Education: unemployed Additional occupation/education comments: Previously worked at a [employer] Gender identity (if verbalized by the patient): Male Sexual Orientation (if Verbalized by the Patient): Straight or Heterosexual Spiritual care concerns: No Anes - Eval Final PreProcedure Day of Procedure 06/08/20 11:59 Patient weight: normal Heart: regular rate and rhythm Lungs: clear to auscultation and normal air movement Airway: Mallampati scale class II Neurological: alert and oriented Last oral intake: >/= 8 hours ASA classification: III Emergent: no Anesthetic plan: proceed Anesthesia type and monitoring: general GIVS Informed Consent: The patient's anesthetic plan and its attendant risks and benefits were discussed with the patient/family/POA. Questions were solicited and answers provided to the satisfaction of the patient/family/POA.
[2020-06-08] MEDS: LACTATED RINGERS 1,000 ML 150 ML IV CONT (12:03)
[2020-06-08 12:09] LABS: Glucose Point of Care 230 (65-105)
[2020-06-08 13:15] LABS: Glucose Point of Care 189 (65-105)
[2020-06-08 13:42] LABS: Folic Acid 11.1 ng/mL (2.76->20)
[2020-06-08] MEDS: CLOPIDOGREL BISULFATE 75 MG TABLET PO (16:31)
[2020-06-08] MEDS: ASPIRIN 81 MG ENTERIC TABLET PO (16:31)
--- NOTE | 2020-06-08 16:47 | PM.IMPN ---
Progress Note: A&P Assessment and Plan (1) Cerebellar dysfunction: Code(s): G93.40 - Encephalopathy, unspecified Status: Acute Assessment and Plan: Brain MRI demonstrated vaguely increased symmetric T2 signal intensity within the jadyn which could be artifact or mild pontinue myelolysis. He reports the onset of several symptoms 5 weeks ago including gait instability with difficulty with balance/coordination, difficulty articulating words due to the sensation of tongue twisting , and dysphagia. He denies recent hospitalization or precipitating event at that time. I have no prior labs for review. He did have a COVID-19 infection 03/17/20. He reports alcohol use and binge drinks on the weekends up to 12-13 beers at a time. He is a poorly controlled diabetic and does not follow with primary care. He was seen in consultation by neurology. He has evidence of dysmetria with abnormal finger to nose testing with overshooting. He has gait ataxia as well. He reports that his symptoms are improving. 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 No masses were appreciated. Head and neck CTA revealed no eviedence of aneurysm or intracranial internal stenosis. There was 0% stenosis of the right ICA and 38% stenosis of the left ICA as well as dental disease. Echocardiogram was revealed normal EF 60-65%, grade 1 diastolic dysfunction, and agitated saline injection opacifing the right sided cardiac chambers suggesting a small patent PFO. Continue ASA and palvix per neurology recommendations. He will need to continue follow-up with neurology in the outpatient setting. He will also need to follow-up with cardiology for his PFO. (2) Gait instability: Code(s): R26.81 - Unsteadiness on feet Status: Acute Assessment and Plan: May be secondary to MRI findings as discussed above with plan as above. He also has peripheral neuropathy. PT/OT were consulted and additional services were not felt to be indicated. Vitamin B12 and folate levels are sufficient. Improve glycemic control. (3) Diabetes mellitus with hyperglycemia: Code(s): E11.65 - Type 2 diabetes mellitus with hyperglycemia Status: Acute Assessment and Plan: The patient reports poor glycemic control on metformin. He was taking this as prescribed prior to admission but notes diarrhea. He does not have a primary care provider or health insurance. He has many barriers to achieving adequate glucose control. Case management has been consulted for input regarding financial assistance programs. Metformin was discontinued and glimepiride was initiated as this medication is on the $4 list. Januvia was initiated but cost care coordination checked the cost and this is very expensive. Discontinue januvia. The telehealth nurse educator has been consulted as well and did not get to see him today but will see him tomorrow. Blood sugars were reviewed and are improving but are still elevated. He was on insulin NPH but will switch this to insulin NPH-regular 70/30 as he can get this for a reasonable moura at [facility]. Continue glimepiride to 2mg. Continue ACHS glucose monitoring, sliding scale insulin, and hypoglycemia protocol. He will need an eye exam and he will also need to see a medical billing and coding instructor outpatient. Hemoglobin A1c was 12.1. (4) Dysphagia: Code(s): R13.10 - Dysphagia, unspecified Status: Acute Assessment and Plan: Possibly secondary to MRI findings as above and could also be due to uncontrolled hyperglycemia. He underwent evaluation by DOUBLER OPERATOR who recommended regular solids and thin liquids as he had no difficulties during his bedside evaluation. Continue pepcid IV BID. Gastroenterology has been consulted and EGD revealed reflux esophagitis with a possible component of dysmotility as there was fluid in his stomach. His diabetes may be contributory. Begin protonix. (5) Alcoholism: Code
[2020-06-08 18:12] LABS: Glucose Point of Care 284 (65-105)
[2020-06-08] MEDS: INSULIN HUMAN ISOPHAN/REGULAR 70/30 (*BKC) 100 UNITS/ML 10 UNITS SUB-Q (18:45)
[2020-06-08 22:31] LABS: Glucose Point of Care 225 (65-105)
[2020-06-09] VITALS: BP 120/86
[2020-06-09 06:00] VITALS: BP 156/94; PULSE 84; RESP 16; TEMP 36.7; O2SAT 100
[2020-06-09 08:02] LABS: Glucose Point of Care 235 (65-105)
[2020-06-09] MEDS: INSULIN ASPART (*BKC) 100 UNITS/ML SUB-Q ×2 (09:35→12:26)
[2020-06-09] MEDS: lisinopriL 5 MG TABLET PO (09:38)
[2020-06-09] MEDS: GLIMEPIRIDE 2 MG TABLET PO (09:38)
[2020-06-09] MEDS: PANTOPRAZOLE 40 MG TABLET PO (09:38)
[2020-06-09] MEDS: FOLIC ACID 1 MG TABLET PO (09:38)
[2020-06-09] MEDS: THIAMINE HCL 100 MG TABLET PO (09:38)
--- NOTE | 2020-06-09 10:56 | WPDANESPN ---
Anes - Prog Note Post-Op Date/Time: 06/09/20 10:56 Cardiovascular status: normal Respiratory status: normal Airway patency: baseline Mental status: baseline Post-Op hydration status: normal Vital Signs: Last Vital Signs Temp 36.7 C 06/09/20 06:00 Pulse 84 06/09/20 06:00 Resp 16 06/09/20 06:00 BP 156/94 H 06/09/20 06:00 Pulse Ox 100 06/09/20 06:00 I/O: Intake & Output 06/08/20 06/09/20 06/09/20 23:59 07:59 15:59 Intake Total 490 400 100 Balance 490 400 100 Laboratory Tests 06/07/20 06:00 06/08/20 08:42 06/07/20 06/07/20 06/08/20 06:00 06:00 12:07 POC Capillary Glucose 230 H Hemoglobin A1c 12.1 H Vitamin B12 705.0 Folate 11.1 06/08/20 06/08/20 06/08/20 13:12 18:07 20:42 POC Capillary Glucose 189 H 284 H 225 H Hemoglobin A1c Vitamin B12 Folate 06/09/20 07:54 POC Capillary Glucose 235 H Hemoglobin A1c Vitamin B12 Folate Post-procedural complaints: none Patient Feedback: Patient satisfied with anesthetic care.
--- NOTE | 2020-06-09 11:20 | PCCDE ---
Consult received for diabetes education. Pt is czech speaking. Attempted to meet with pt but Shanelle was not working. Staff attempting to get replacement. will follow
[2020-06-09 12:02] LABS: Glucose Point of Care 364 (65-105)
[2020-06-09] MEDS: ASPIRIN 81 MG ENTERIC TABLET PO (12:25)
[2020-06-09] MEDS: CLOPIDOGREL BISULFATE 75 MG TABLET PO (12:25)
[2020-06-09 14:00] VITALS: BP 108/72; PULSE 88; RESP 20; TEMP 36.7; O2SAT 100
[2020-06-09 16:00] VITALS: BP 108/72
--- NOTE | 2020-06-09 16:56 | PM.IMPN ---
Progress Note: A&P Assessment and Plan (1) Diabetes mellitus with hyperglycemia: Code(s): E11.65 - Type 2 diabetes mellitus with hyperglycemia Status: Acute Assessment and Plan: The patient reports poor glycemic control on metformin. He was taking this as prescribed prior to admission but notes diarrhea. He does not have a primary care provider or health insurance. He has many barriers to achieving adequate glucose control. Case management has been consulted for input regarding financial assistance programs. Metformin was discontinued and glimepiride was initiated as this medication is on the $4 list. The certified diabetes educator has been consulted as well and did not see him today but states that she will see him tomorrow. Blood sugars were reviewed and are improving but are still elevated. Continue NPH-regular 70/30 as he can get this for a reasonable moura at [facility]. Will hold glimiperide while he is inpatient since he is no longer discharging today and increase his NPH-regular 70/30 to 20 units BID. Continue ACHS glucose monitoring, sliding scale insulin, and hypoglycemia protocol. He will need an eye exam and he will also need to see a retinal angiographer outpatient. Hemoglobin A1c was 12.1. (2) Cerebellar dysfunction: Code(s): G93.40 - Encephalopathy, unspecified Status: Acute Assessment and Plan: Brain MRI demonstrated vaguely increased symmetric T2 signal intensity within the jadyn which could be artifact or mild pontinue myelolysis. He reports the onset of several symptoms 5 weeks ago including gait instability with difficulty with balance/coordination, difficulty articulating words due to the sensation of tongue twisting , and dysphagia. He denies recent hospitalization or precipitating event at that time. I have no prior labs for review. He did have a COVID-19 infection 03/17/20. He reports alcohol use and binge drinks on the weekends up to 12-13 beers at a time. He is a poorly controlled diabetic and does not follow with primary care. He was seen in consultation by neurology. He has evidence of dysmetria with abnormal finger to nose testing with overshooting. He has gait ataxia as well. He reports that his symptoms are improving. 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 No masses were appreciated. Head and neck CTA revealed no eviedence of aneurysm or intracranial internal stenosis. There was 0% stenosis of the right ICA and 38% stenosis of the left ICA as well as dental disease. Echocardiogram was revealed normal EF 60-65%, grade 1 diastolic dysfunction, and agitated saline injection opacifing the right sided cardiac chambers suggesting a small patent PFO. Continue ASA and palvix per neurology recommendations. He will need to continue follow-up with neurology in the outpatient setting. He will also need to follow-up with cardiology for his PFO. (3) Gait instability: Code(s): R26.81 - Unsteadiness on feet Status: Acute Assessment and Plan: May be secondary to MRI findings as discussed above with plan as above. He also has peripheral neuropathy. PT/OT were consulted and additional services were not felt to be indicated. Vitamin B12 and folate levels are sufficient. Improve glycemic control. (4) Dysphagia: Code(s): R13.10 - Dysphagia, unspecified Status: Acute Assessment and Plan: Possibly secondary to MRI findings as above and could also be due to uncontrolled hyperglycemia. He underwent evaluation by [facility] [employer] who recommended regular solids and thin liquids as he had no difficulties during his bedside evaluation. Gastroenterology has been consulted and EGD revealed reflux esophagitis with a possible component of dysmotility as there was fluid in his stomach. His diabetes may be contributory. Continue protonix. (5) Alcoholism: Code(s): F10.20 - Alcohol dependence, uncomplicated Status: Ac
[2020-06-09] MEDS: INSULIN HUMAN ISOPHAN/REGULAR 70/30 (*BKC) 100 UNITS/ML 15 UNITS SUB-Q (17:22)
--- NOTE | 2020-06-09 17:46 | PC.NURSE ---
Patient didn't receive 0630 dose of 70/30 10 units insulin. I was asked by Olga LOONEY why he did not receive this dose. I am not aware why, I didn't receive any report about this during shift report.
[2020-06-09 21:08] LABS: Glucose Point of Care 197 (65-105)
[2020-06-09 22:00] VITALS: BP 112/81; PULSE 91; RESP 20; TEMP 36.5; O2SAT 99
[2020-06-09 22:21] LABS: Glucose Point of Care 216 (65-105)
[2020-06-10] MEDS: INSULIN HUMAN ISOPHAN/REGULAR 70/30 (*BKC) 100 UNITS/ML 15 UNITS SUB-Q (05:54)
[2020-06-10 06:00] VITALS: BP 137/86; PULSE 75; RESP 20; TEMP 36.8; O2SAT 100
[2020-06-10 06:12] LABS: Hematocrit 37.1 % (42.0-52.0); Hemoglobin 12.7 g/dL (14.0-18.0); Mean Corpuscular HGB Conc 34.2 g/dl (32-36); Mean Corpuscular Volume 90.5 fl (80-100); Mean Platelet Volume 9.6 fl (7.4-10.4); Platelet Count Result 249 k/mm3 (150-375); Red Cell Distribution Width 11.8 % (11.5-14.5); White Blood Count 9.7 K/mm3 (4.5-10.0)
[2020-06-10 06:29] LABS: Glucose Point of Care 203 (65-105)
[2020-06-10 06:40] LABS: Alanine Aminotransferase 30 U/L (4-50); Albumin Level 3.6 g/dL (3.5-5.1); Alkaline Phosphatase 66 U/L (38-126); Anion Gap 10.4 mmol/L (7-16); Aspartate Amino Transferase 31 U/L (17-59); Bilirubin,Total 0.2 mg/dL (0.2-1.3); Blood Urea Nitrogen 25 mg/dL (9-20); Calcium 9.2 mg/dL (8.4-10.2); Carbon Dioxide 29 mmol/L (22-30); Chloride 103 mmol/L (98-107); Cholesterol 183 mg/dL (0-200); Estimated CRCL calculation 97 ml/min; Estimated Glomerular Filt Rate > 60; Glucose 204 mg/dL (75-110); HDL Direct 46 mg/dL; Magnesium 1.7 mg/dL (1.6-2.3); Potassium 4.4 mmol/L (3.4-5.0); Sodium 138 mmol/L (137-145); Triglycerides 91 mg/dL (<150)
[2020-06-10 06:51] LABS: LDL Cholesterol Direct 107 mg/dL
[2020-06-10 08:25] VITALS: BMI 22.8
[2020-06-10 08:49] LABS: Glucose Point of Care 189 (65-105)
[2020-06-10] MEDS: PANTOPRAZOLE 40 MG TABLET PO (09:33)
[2020-06-10] MEDS: THIAMINE HCL 100 MG TABLET PO (09:33)
[2020-06-10] MEDS: ASPIRIN 81 MG ENTERIC TABLET PO (09:33)
[2020-06-10] MEDS: FOLIC ACID 1 MG TABLET PO (09:33)
[2020-06-10] MEDS: CLOPIDOGREL BISULFATE 75 MG TABLET PO (09:33)
[2020-06-10] MEDS: lisinopriL 5 MG TABLET PO (09:33)
--- NOTE | 2020-06-10 10:39 | PM.DS ---
DS: Admitting Diagnosis Admitting Diagnosis Admitting Diagnosis: Unsteadiness on feet DS: Discharge Diagnosis Discharge Diagnosis (1) Diabetes mellitus with hyperglycemia: Code(s): E11.65 - Type 2 diabetes mellitus with hyperglycemia Status: Acute Assessment and Plan: Presented to ED due to feeling off-balance with glucose > 600 at home. Issues with diarrhea on metformin. His PCP is at [facility] Dr Loyd. He does not have insurance, case management assisted in helping moura new DM medications for him. Hemoglobin A1c was 12.1. Glimepiride was initiated as this medication is on the $4 list. He will need an eye exam and he will also need to see a minister outpatient. Scheduled him an appointment with PCP 06/12/20. (2) Cerebellar dysfunction: Code(s): G93.40 - Encephalopathy, unspecified Status: Acute Assessment and Plan: Brain MRI demonstrated vaguely increased symmetric T2 signal intensity within the jadyn which could be artifact or mild pontinue myelolysis. He reports the onset of several symptoms 5 weeks ago including gait instability with difficulty with balance/coordination, difficulty articulating words due to the sensation of tongue twisting , and dysphagia. He denies recent hospitalization or precipitating event at that time. I have no prior labs for review. He did have a COVID-19 infection 03/17/20. He reports alcohol use and binge drinks on the weekends up to 12-13 beers at a time. He is a poorly controlled diabetic. He was seen in consultation by neurology. He has evidence of dysmetria with abnormal finger to nose testing with overshooting. He has gait ataxia as well. He reports that his symptoms are improving. Head and neck CTA revealed no eviedence of aneurysm or intracranial internal stenosis. There was 0% stenosis of the right ICA and 38% stenosis of the left ICA as well as dental disease. Echocardiogram revealed normal EF 60-65%, grade 1 diastolic dysfunction, and agitated saline injection opacifing the right sided cardiac chambers suggesting a small patent PFO. Continue ASA and palvix per neurology recommendations. He will need to continue follow-up with neurology in the outpatient setting. He will also need to follow-up with cardiology for his PFO. (3) Gait instability: Code(s): R26.81 - Unsteadiness on feet Status: Acute Assessment and Plan: May be secondary to MRI findings as discussed above with plan as above. He also has peripheral neuropathy. Vitamin B12 and folate levels are sufficient. Improve glycemic control. Improved prior to discharge. (4) Dysphagia: Code(s): R13.10 - Dysphagia, unspecified Status: Acute Assessment and Plan: Possibly secondary to MRI findings as above and could also be due to uncontrolled hyperglycemia. He underwent evaluation by [employer] who recommended regular solids and thin liquids as he had no difficulties during his bedside evaluation. Gastroenterology has been consulted and EGD revealed reflux esophagitis with a possible component of dysmotility as there was fluid in his stomach. His diabetes may be contributory. Continue protonix. (5) Alcoholism: Code(s): F10.20 - Alcohol dependence, uncomplicated Status: Acute Assessment and Plan: He has no symptoms of withdrawal appreciated at this time. Continue to encourage alcohol cessation. (6) DVT prophylaxis: Code(s): Z29.9 - Encounter for prophylactic measures, unspecified Status: Acute Assessment and Plan: SCDs. DS: Summary Hospital Course Hospital Course: Date of Service 06/10/20 Mr. Moralez is a 44 yo M with history of type 2 DM who presented to the ED for evaluation due to blood sugars > 600 at home, weakness, feeling like his legs were giving out, feeling off-balance . The patient's first langua
[2020-06-10 12:47] LABS: Glucose Point of Care 215 (65-105)
[2020-06-10] MEDS: INSULIN ASPART (*BKC) 100 UNITS/ML SUB-Q (12:48)
== END 2020-06-10 16:32 | disposition home or self-care (01) | DRG 420 ==
LOC: ANHED 18:53 → ANH3MEDSUR 19:29
PROVIDERS: Internal Medicine Gastroenterology; Physician Assistant; Admitting Provider Family Medicine; Emergency Provider Emergency Medicine; Visit Provider Physician Assistant
PROC: 0DJ08ZZ Inspection of Upper Intestinal Tract, Via Natural or Artificial Opening Endoscopic (ICD-10-PCS; CPT 43235; principal; 2020-06-08 12:00)
DX: E11.65 Type 2 diabetes mellitus with hyperglycemia (principal); G93.40 Encephalopathy, unspecified; R90.89 Other abnormal findings on diagnostic imaging of central nervous system; K52.1 Toxic gastroenteritis and colitis; T38.3X5A Adverse effect of insulin and oral hypoglycemic [antidiabetic] drugs, initial encounter; K21.0 Gastro-esophageal reflux disease with esophagitis; K31.84 Gastroparesis; R26.81 Unsteadiness on feet; R11.2 Nausea with vomiting, unspecified; R13.10 Dysphagia, unspecified; F10.20 Alcohol dependence, uncomplicated; F17.210 Nicotine dependence, cigarettes, uncomplicated; E11.42 Type 2 diabetes mellitus with diabetic polyneuropathy; Z89.411 Acquired absence of right great toe; Z86.19 Personal history of other infectious and parasitic diseases; Z91.14 Patient's other noncompliance with medication regimen
CPT/HCPCS: 36415; 70450; 70496; 70498; 70553; 71045; 80048; 80053; 80061; 81001; 82550; 82607; 82746; 82948; 83036; 83690; 83735; 85025; 85027; 88305; 88342; 92610; 93005; 93306; 96360; 96361; 96374; 96375; 96376; 97161; 97165; 99285; A9270; A9577; G0378; G0379; J1815; J2704; J3411; J7030; J7120; Q9967

== ENCOUNTER 2021-07-27 22:54 | Inpatient (IN) | payer MEDICAID, SELFPAY ==
--- NOTE | ~2021-07-27 | CT_ITS ---
EXAMINATION: CT abdomen pelvis wo con DATE: 07/28/2021 11:48 INDICATION: Nausea and vomiting TECHNIQUE: Computed tomography (CT) of the abdomen and pelvis was performed without intravenous contr ast. The dose-length product (DLP) was 255.59 mGy-cm. Automated exposure control and iterative recons truction technique were employed. COMPARISON: None FINDINGS: The lung bases are clear. The heart size is normal. Calcified coronary artery atheroscleros is is noted. There is mild bilateral gynecomastia. The liver, spleen, pancreas, gallbladder, and adre nal glands are normal. The kidneys are unremarkable. No pathologically enlarged abdominal or pelvic l ymph nodes are identified. There is no free intraperitoneal gas or evidence of bowel obstruction. The re is distention of the urinary bladder. There is calcified atherosclerosis of the aorta and many of the other arteries. The appendix is normal. IMPRESSION: 1. No CT correlate for the patient's symptoms. 2. Distended urinary bladder. Reviewed, dictated and finalized at location A.
[2021-07-27 22:57] VITALS: BP 160/99; PULSE 113; RESP 24; O2SAT 100
[2021-07-27 23:24] LABS: Basophils Percent Auto 0.2 % (0.2-1.2); Eosinophils Percent Auto 0.2 % (0-4.4); Hematocrit 34.6 % (42.0-52.0); Hemoglobin 12.5 g/dL (14.0-18.0); Immature Granulocyte Absolute 0.04 K/mm3 (0.00-0.031); Immature Granulocyte Percent A 0.3 % (0-0.5); Lymphocytes Percent Auto 14.8 % (18.3-44.2); Mean Corpuscular HGB Conc 36.1 g/dl (32-36); Mean Corpuscular Hemoglobin 31.2 pg (26-34); Mean Corpuscular Volume 86.3 fl (80-100); Mean Platelet Volume 9.6 fl (7.4-10.4); Monocytes Absolute Auto 0.9 K/mm3 (0.1-0.6); Monocytes Percent Auto 6.9 % (2.6-8.5); Neutrophils Absolute Auto 9.9 K/mm3 (1.3-6.7); Neutrophils Percent Auto 77.6 % (45.5-73.1); Platelet Count Result 331 k/mm3 (150-375); Red Blood Count 4.01 M/mm3 (4.6-6.20); Red Cell Distribution Width 11.8 % (11.5-14.5); White Blood Count 12.8 K/mm3 (4.5-10.0)
[2021-07-27 23:42] LABS: Alanine Aminotransferase 20 U/L (4-50); Albumin Level 4.7 g/dL (3.5-5.1); Alkaline Phosphatase 137 U/L (38-126); Anion Gap 21 mmol/L (8-16); Aspartate Amino Transferase 22 U/L (17-59); Bilirubin,Total 0.8 mg/dL (0.2-1.3); Blood Urea Nitrogen 48 mg/dL (9-20); Calcium 10.6 mg/dL (8.4-10.2); Carbon Dioxide 24 mmol/L (22-30); Chloride 91 mmol/L (98-107); Estimated Glomerular Filt Rate 43; Glucose 486 mg/dL (65-110); Lipase 138 U/L (23-300); Potassium 4.8 mmol/L (3.4-5.0); Sodium 136 mmol/L (137-145)
[2021-07-27 23:45] LABS: Add Urine Microscopic? YES; Appearance Urine Clear (Clear); Bacteria Urine Trace /hpf; Bilirubin Urine Negative (Negative); Blood Urine Negative (Negative); Color Urine Yellow (Yellow); Glucose Urine UA 3+ mg/dL (Negative); Ketones Urine 1+ mg/dL (Negative); Leukocyte Esterase Ur Trace LEU/UL (Negative); Mucus Urine Rare /lpf; Nitrate Urine Negative (Negative); Protein Urine 2+ mg/dL (Negative); RBC Urine 0-2 /hpf (0-2); Specific Grav Ur 1.024 (1.001-1.035); Squamous Epithelial Cell Urine Occasional /hpf (Few); Urobilinogen Urine Negative mg/dL (<2.0)
--- NOTE | 2021-07-27 23:49 | ED.GENADULT ---
HPI - General Adult General Chief complaint: Nausea/Vomiting/Diarrhea Stated complaint: vomiting weakness Time Seen by Provider: 07/27/21 23:33 Source: patient History of Present Illness HPI narrative: Patient is 45 y/o male complaining of nausea and vomiting starting earlier today. He vomited more than 20 times. His vomit is mostly brown liquid. There is no known alleviating or exacerbating factor. He has no diarrhea. He has some generalized abdominal pain. Related Data Allergies Allergy/AdvReac Type Severity Reaction Status Date / Time No Known Allergies Allergy Verified 07/27/21 23:28 Review of Systems Constitutional: Constitutional: Denies chills, Denies fever(s), Denies headache(s) and Denies weakness Eyes: Eyes: Denies blurry vision ENT: Denies headache(s) and Denies neck pain Cardiovascular: Cardiovascular: Denies chest pain and Denies dyspnea Respiratory: Respiratory: Denies cough and Denies dyspnea Gastrointestinal: Gastrointestinal: Reports abdominal pain, Denies diarrhea, Reports nausea and Reports vomiting Genitourinary: Genitourinary: Denies hematuria and Denies dysuria Musculoskeletal: Musculoskeletal: Denies back pain and Denies neck pain Neurologic: Denies headache(s) and Denies weakness [facility] Past Medical History Medical History Alcoholism Cerebellar dysfunction Depression Diabetes mellitus Diabetic peripheral neuropathy Dysphagia Gait instability Surgical History Surgical History Amputated great toe of right foot Family History Family History Father Alcoholic cirrhosis Mother No problems noted. Social History Social History Smoking status: Light tobacco smoker Tobacco type: cigarettes Alcohol intake: current Alcohol use details: He drinks on the weekends and reports drinking 12-13 drinks during parties. He drinks occasionally during the week and reports only 1 drink/day during the week. Substance use: former Substance use type: marijuana, crack/cocaine and methamphetamine Additional occupation/education comments: Previously worked at a [employer] Gender identity (if verbalized by the patient): Male Sexual Orientation (if Verbalized by the Patient): Straight or Heterosexual Spiritual care concerns: No Exam Const: General: no acute distress and well developed Orientation/consciousness: oriented to person, oriented to place, oriented to time and patient oriented x3 HENMT: Head: normocephalic Ears: external ears normal General nose exam: Normal external nose present Eyes: General: appearance normal, both eyes and all related structures Conjunctivae: conjunctivae normal Neck: Neck: normal visual inspection and full ROM Chest: Chest palpation & inspection: normal inspection of the chest and no tenderness Resp: Effort & Inspection: normal respiratory effort Auscultation: clear to auscultation bilaterally Cardio: Rate: tachycardic Rhythm: regular rhythm GI: GI Palp: No abdominal tenderness and Yes Soft to palpation Skin: General skin exam: normal color and turgor normal Neuro: General: oriented to person, oriented to place, oriented to time and patient oriented x3 Cognition (Neuro): normal cognition Extrem: General: normal to inspection, full ROM and no pedal edema Psych: Appearance: grossly normal Mental Status: mental status grossly normal Affect: normal affect Course Consultations Consultation #1: Discussed with Dr. Kruger, who agrees to admit. Date: 07/27/21 Time: 23:52 Vital Signs Vital signs: Vital Signs Pulse Rate 113 H 07/27/21 22:57 Respiratory Rate 24 H 07/27/21 22:57 Blood Pressure 160/99 H 07/27/21 22:57 Pulse Oximetry 100 07/27/21 22:57 Pulse Rate 113 H 07/27/21 22:57 Respirator
[2021-07-27] MEDS: SODIUM CHLORIDE 0.9% IV 1,000 ML 999 ML IV CONT (23:56)
[2021-07-27] MEDS: ONDANSETRON INJ 4 MG/2 ML VIAL IV PUSH (23:56)
[2021-07-28] VITALS (9 sets, daily range): BP systolic 87–163; BP diastolic 56–92; PULSE 83–99; RESP 14–27; TEMP 36.4–36.8; O2SAT 96–100; BMI 19.7
--- NOTE | 2021-07-28 00:01 | PC.NURSE ---
Called lab and spoke to Clarissa to add o Ethanol
[2021-07-28 00:16] LABS: Alveolar/Arterial O2 Gradient 7.3 mmHg; Fractional Inspired Oxygen 21 %; HCO3 ABG 20.8 mEq/l (22.0-26.0); Modified Allen's Test Pass; Oxygen Content ABG 16.2 %vol (16.0-22.0); Oxygen Saturation ABG 98.2 % (95.0-100.0); PCO2 ABG 29.4 mmHg (35.0-45.0); PO2 ABG 107.2 mmHg (80.0-100.0); Site Drawn RIGHT RADIAL; Total Hemoglobin 11.9 g/dL (12.0-18.0); pH ABG 7.467 (7.350-7.450)
[2021-07-28 00:19] LABS: Ethanol < 10 mg/dL (<10)
[2021-07-28] MEDS: PANTOPRAZOLE SODIUM IV 40 MG VIAL IV PUSH ×3 (00:37→21:49)
[2021-07-28] MEDS: INSULIN HUMAN REGULAR (*BKC) 100 UNITS/ML 8 UNITS IV PUSH ×2 (00:37→01:54)
[2021-07-28 00:49] LABS: Glucose Point of Care 378 mg/dl (65-105)
[2021-07-28 00:50] LABS: Amphetamine Screen Urine Positive (Negative); Barbiturate Screen Urine Negative (Negative); Benzodiazepines Screen Urine Negative (Negative); Cannabinoid Screen Urine Negative (Negative); Cocaine Screen Urine Negative (Negative); Methadone Screen Urine Negative (Negative); Opiate Screen Urine Negative (Negative); Phencyclidine Screen Urine Negative (Negative)
[2021-07-28 01:39] LABS: Anion Gap 16 mmol/L (8-16); Blood Urea Nitrogen 46 mg/dL (9-20); Carbon Dioxide 24 mmol/L (22-30); Chloride 99 mmol/L (98-107); Estimated Glomerular Filt Rate 59; Glucose 320 mg/dL (65-110); Potassium 3.6 mmol/L (3.4-5.0); Sodium 139 mmol/L (137-145)
--- NOTE | 2021-07-28 02:23 | PM.IMHP ---
H&P: HPI History of Present Illness Date/Time: 07/28/21 02:23 Chief Complaint: Nausea and vomiting Narrative: This is a 45-year-old male with past medical history significant for type 2 diabetes mellitus, chronic kidney disease, hypertension, substance abuse, tobacco dependence. Patient presented to emergency room due to nausea vomiting since early in the morning has had portable 20 episodes or more had some coffee ground emesis as well abdominal pain patient has been in his usual state of health up until this he admits to using crystal meth the day before. He denies any fevers any rigors any chills any pain or burning with urination any cough any sputum production. Preliminary workup was significant for a blood glucose of 486. Patient denies any bright red blood in the vomits. Decision has been made to place the patient for observation. Review of Systems Review of Systems: Nausea, vomiting, coffee-ground emesis Constitutional: Constitutional: Denies chills, Denies fatigue, Denies fever(s) and Denies weakness Eyes: Eyes: Denies change in vision ENT: Denies dysphagia, Denies nasal congestion, Denies nasal discharge and Denies nasal obstruction Cardiovascular: Cardiovascular: Denies chest pain, Denies irregular heart rhythm, Denies lightheadedness, Denies radiating jaw, neck or arm pain and Denies palpitations Respiratory: Respiratory: Denies cough and Denies dyspnea Gastrointestinal: Gastrointestinal: Reports coffee ground emesis, Denies dyspepsia, Denies heartburn, Denies nausea and Denies vomiting Genitourinary: Genitourinary: Reports no additional male genitourinary complaints Musculoskeletal: Musculoskeletal: Reports no additional musculoskeletal complaints Integumentary/Breasts: Skin/Breast: Reports system reviewed and no additional complaints, except as docu Neurologic: Reports system reviewed and no additional complaints, except as documented Psychiatric: Psychiatric: Reports no additional psychiatric complaints Endocrine: Endocrine: Reports no additional endocrine complaints Hematologic/Lymphatic: Hematologic/Lymphatic: Reports no additional hematologic/lymphatic complaints Allergic/Immunologic: Allergic/Immunologic: Reports no additional allergic/immunologic complaints [facility] Past Medical History Medical History (Updated 07/28/21 @ 02:37 by Zonia Kruger MD) Alcoholism Cerebellar dysfunction Depression Diabetes mellitus Diabetic peripheral neuropathy Dysphagia Gait instability Surgical History Surgical History Amputated great toe of right foot Family History Family History Father Alcoholic cirrhosis Mother No problems noted. Social History Social History Smoking status: Light tobacco smoker Tobacco type: cigarettes Alcohol intake: current Alcohol use details: He drinks on the weekends and reports drinking 12-13 drinks during parties. He drinks occasionally during the week and reports only 1 drink/day during the week. Substance use: former Substance use type: marijuana, crack/cocaine and methamphetamine Additional occupation/education comments: Previously worked at a [employer] Gender identity (if verbalized by the patient): Male Sexual Orientation (if Verbalized by the Patient): Straight or Heterosexual Spiritual care concerns: No Meds Home Medications and Allergies Home Medications Medication Instructions Recorded Confirmed Type aspirin 81 mg PO QAM 30 Days #30 tablet 06/09/20 Rx atorvastatin 40 mg PO DAILY 30 Days #30 tablet 06/09/20 Rx clopidogrel 75 mg PO QAM 30 Days #30 tablet 06/09/20 Rx glimepiride 2 mg PO DAILY@0800 30 Days #30 06/09/20 Rx tablet insulin NPH and regular human 15 unit SUBCUT BIDAC 30 Days #4.5 06/09/20 Rx [Novolin 70/30 U-100 Insulin] ml insulin syr
--- NOTE | 2021-07-28 04:21 | ADMGEN ---
This patient, Jamil Gallo, was admitted to [facility] Surg Room 312-01. Patient/family oriented to hospital policies and general routines including ID bracelet, bed and alarms, visiting hours, pain management, procedures, bathroom and other care routines, personal items, smoking policy, room service/diet, and visiting hours. Information on how to activate the Rapid Response Team has been discussed. Patient/Family are encouraged to report perceived risks to care and to ask questions if they do not understand what they are told or what they should do.
[2021-07-28 04:33] LABS: Glucose Point of Care 251 mg/dl (65-105)
[2021-07-28] MEDS: LORazepam INJ (*CRX) 2 MG/ML VIAL 1 MG IV PUSH (05:12)
[2021-07-28] MEDS: THIAMINE HCL INJ 100 MG, FOLIC ACID INJ 1 MG, MULTIVITAMINS-12 INJ VIAL 1 5 ML, MULTIVI... 75 MG IV CONT (05:12)
[2021-07-28 07:05] LABS: Anion Gap 18 mmol/L (8-16); Blood Urea Nitrogen 48 mg/dL (9-20); Calcium 9.5 mg/dL (8.4-10.2); Carbon Dioxide 22 mmol/L (22-30); Chloride 99 mmol/L (98-107); Estimated CRCL calculation 48 ml/min; Estimated Glomerular Filt Rate 50; Glucose 324 mg/dL (65-110); Magnesium 2.3 mg/dL (1.6-2.3); Phosphorus 5.7 mg/dL (2.5-4.5); Potassium 4.1 mmol/L (3.4-5.0); Sodium 139 mmol/L (137-145)
[2021-07-28 09:22] LABS: Glucose Point of Care 307 mg/dl (65-105)
[2021-07-28] MEDS: INSULIN ASPART (*BKC) 100 UNITS/ML SUB-Q ×3 (09:31→18:17)
--- NOTE | 2021-07-28 09:48 | WPDANESEPPF ---
Anes - Initial Pre Proc Eval Procedure: Operation Date: 07/28/21 14:15 Proposed Procedures p Esophagogastroduodenoscopy - Bobby Madrid MD Date/Time: 07/28/21 09:48 Surgeon: Katharine Raza PA-C Pre Op Diagnosis: MILLI, Nausea & Vomiting Patient Data Age: 45 Gender: M Height: 1.78 m Weight: 62.3 kg Last Vital Signs Temp 36.6 C 07/28/21 08:00 Pulse 99 07/28/21 08:00 Resp 16 07/28/21 08:00 BP 123/86 07/28/21 08:00 Pulse Ox 100 07/28/21 08:00 Allergies Allergy/AdvReac Type Severity Reaction Status Date / Time No Known Allergies Allergy Verified 07/27/21 23:28 Home Medications Medication Instructions Recorded Confirmed Type insulin syr/ndl U100 half cheo #100 each 06/09/20 07/28/21 Rx blood-glucose meter [ReliOn #1 each 06/10/20 07/28/21 Rx All-In-One Meter] metformin 1,000 mg BYMOUTH BID 07/28/21 07/28/21 History Laboratory Tests 07/27/21 07/27/21 07/27/21 23:07 23:07 23:07 WBC 12.8 K/mm3 H K/mm3 (4.5-10.0) RBC 4.01 M/mm3 L M/mm3 (4.6-6.20) Hgb 12.5 g/dL L g/dL (14.0-18.0) Hct 34.6 % L % (42.0-52.0) MCV 86.3 fl fl (80-100) MCH 31.2 pg pg (26-34) MCHC 36.1 g/dl H g/dl (32-36) RDW 11.8 % % (11.5-14.5) Plt Count 331 k/mm3 k/mm3 (150-375) MPV 9.6 fl fl (7.4-10.4) Immature Gran % (Auto) 0.3 % % (0-0.5) Neut % (Auto) 77.6 % H % (45.5-73.1) Lymph % (Auto) 14.8 % L % (18.3-44.2) [place] % (Auto) 6.9 % % (2.6-8.5) Eos % (Auto) 0.2 % % (0-4.4) Baso % (Auto) 0.2 % % (0.2-1.2) Lymph # (Auto) 1.90 K/mm3 K/mm3 (0.9-3.2) [place] # (Auto) 0.9 K/mm3 H K/mm3 (0.1-0.6) Eos # (Auto) 0.0 K/mm3 K/mm3 (0-0.3) Baso # (Auto) 0.0 K/mm3 K/mm3 (0.0-0.1) Abs Immat Gran (auto) 0.04 K/mm3 H K/mm3 (0.00-0.031) Absolute Neuts (auto) 9.9 K/mm3 H K/mm3 (1.3-6.7) Absolute Nucleated RBC 0.0 K/mm3 K/mm3 (0.0-0.012) Nucleated RBC % 0.0 % % (0.0-0.2) Puncture Site ABG pH ABG pCO2 ABG pO2 ABG PO2/FiO2 Ratio ABG HCO3 ABG O2 Saturation ABG O2 Content ABG Base Excess A-a Gradient Oxyhemoglobin Total Hemoglobin O2 Delivery Device O2 Liters/Min FiO2 Sodium 136 mmol/L L mmol/L (137-145) Potassium 4.8 mmol/L mmol/L (3.4-5.0) Chloride 91 mmol/L L mmol/L (98-107) Carbon Dioxide 24 mmol/L mmol/L (22-30) Anion Gap 21 mmol/L H mmol/L (8-16) BUN 48 mg/dL H D mg/dL (9-20) Creatinine 1.70 mg/dL H mg/dL (0.7-1.3) Estim Creat Clear Calc Not Reportable Estimated GFR 43 L (59 - ) Glucose 486 mg/dL H mg/dL (65-110) POC Capillary Glucose Hemoglobin A1c Calcium 10.6 mg/dL H mg/dL (8.4-10.2) Phosphorus Magnesium Total Bilirubin 0.8 mg/dL mg/dL (0.2-1.3) AST 22 U/L U/L (17-59) ALT 20 U/L U/L (4-50) Alkaline Phosphatase 137 U/L H U/L (38-126) Total Protein 8.0 g/dL g/dL (6.3-8.2) Albumin 4.7 g/dL g/dL (3.5-5.1) Lipase 138 U/L U/L (23-300) Urine Color Urine Appearance Urine pH Ur Specific [place] Urine Protein Urine Glucose (UA) Urine Ketones Ur Blood (Man) Urine Nitrate Urine Bilirubin Urine Urobilinogen Leukocyte Esterase Rfl Urine RBC Urine WBC Ur Squamous Epith Cells Urine Bacteria Hyaline Casts
[2021-07-28 09:50] LABS: Glucose Point of Care 320 mg/dl (65-105)
[2021-07-28] MEDS: LACTATED RINGERS 1,000 ML 100 ML IV CONT (09:58)
--- NOTE | 2021-07-28 09:58 | WPDGICN ---
Assessment and Plan Assessment and plan (1) Coffee ground emesis: Code(s): K92.0 - Hematemesis Status: Acute Assessment and Plan: could be ulcer, esophagitis, MW tear, etc will proceed with urgent egd to assess on iv protonix and supportive care monitor for more signs of bleeding (2) MILLI (acute kidney injury): Code(s): N17.9 - Acute kidney failure, unspecified Status: Acute Assessment and Plan: fluids and medical treatment (3) Epigastric pain: Code(s): R10.13 - Epigastric pain Status: Acute (4) Uncontrolled diabetes mellitus: Code(s): E11.65 - Type 2 diabetes mellitus with hyperglycemia Status: Acute Assessment and Plan: h/o non-compliance and also h/o substance abuse (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 He came to ER with 1 day of intractable nausea and vomiting, over 20 episodes of emesis and some of them with coffee ground material, also had epigastric pain. ER labs showed blood glucose of 486, hb 12.5 (baseline), creat 1.7, bun 48, AG 21 with normal CO2, Urine tox + amphetamines. Never had EGD. Review of Systems Constitutional: Constitutional: Denies chills Eyes: Eyes: Denies blurry vision ENT: Reports Normal hearing present Cardiovascular: Cardiovascular: Denies chest pain Respiratory: Respiratory: Denies dyspnea Gastrointestinal: Gastrointestinal: Reports abdominal pain, Reports nausea and Reports vomiting Genitourinary: Genitourinary: Denies dysuria Musculoskeletal: Musculoskeletal: Denies neck pain Integumentary/Breasts: Skin/Breast: Denies dry skin Neurologic: Denies confusion Psychiatric: Psychiatric: Reports no additional psychiatric complaints [facility] Past Medical History Medical History (Updated 07/28/21 @ 10:39 by Bobby Madrid MD) Alcoholism Cerebellar dysfunction Coffee ground emesis Depression Diabetes mellitus Diabetic peripheral neuropathy Dysphagia Epigastric pain Gait instability Uncontrolled diabetes mellitus Surgical History Surgical History Amputated great toe of right foot Family History Family History Father Alcoholic cirrhosis Mother No problems noted. Social History Social History Smoking status: Current some day smoker Tobacco type: cigars Alcohol intake: former Alcohol use details: He drinks on the weekends and reports drinking 12-13 drinks during parties. He drinks occasionally during the week and reports only 1 drink/day during the week. Substance use: current Substance use type: amphetamines Other substance usage details: pt states he was at a part Additional occupation/education comments: Previously worked at a [employer] Gender identity (if verbalized by the patient): Male Sexual Orientation (if Verbalized by the Patient): Straight or Heterosexual Spiritual care concerns: Yes Meds Home Medications and Allergies Home Medications Medication Instructions Recorded Confirmed Type insulin syr/ndl U100 half cheo #100 each 06/09/20 07/28/21 Rx blood-glucose meter [ReliOn #1 each 06/10/20 07/28/21 Rx All-In-One Meter] metformin 1,000 mg BYMOUTH BID 07/28/21 07/28/21 History Allergies Allergy/AdvReac Type Severity Reaction Status Date / Time No Known Allergies Allergy Verified 07/27/21 23:28 Vital Signs Vital Signs - 24 hr 07/27/21 22:57 07/28/21 02:35 07/28/21 08:00 Temperature 97.8 F 97.8 F
--- NOTE | 2021-07-28 09:59 | SUR.PREOP ---
[employer] gerard #[id number], used for consent and anesthesia. Anesthesia aware of patients blood sugar. No new orders. Patient denies questions.
--- NOTE | 2021-07-28 11:35 | SUR.PHASEII ---
PT TO RADIOLOGY FOR CT SCAN
[2021-07-28 12:23] LABS: Glucose Point of Care 294 mg/dl (65-105)
[2021-07-28 12:42] LABS: Hemoglobin A1C 12.4 % (<5.7)
--- NOTE | 2021-07-28 12:43 | SUR.PHASEII ---
DR ANDREWS AWARE OF POSITIVE H PYLORI
[2021-07-28] MEDS: SUCRALFATE SUSP 100 MG/ML 10 ML UDC 1000 MG PO ×3 (13:00→21:48)
--- NOTE | 2021-07-28 15:29 | PM.IMPN ---
Progress Note: A&P Assessment and Plan (1) Coffee ground emesis: Code(s): K92.0 - Hematemesis Status: Acute Assessment and Plan: Patient came in with coffee-ground emesis. He had an EGD today by Dr. Wilson who found reflux esophagitis and gastritis. Recommends PPI 40 mg twice daily and adding Carafate ACHS for 2 weeks. Biopsy completed during EGD shows positive H pylori testing so also being treated with clarithromycin, amoxicillin for 14 days. Patient still having some nausea at this time. No vomiting. P.r.n. antiemetics. Advance diet as tolerated. Appreciate GI input. Continue monitoring (2) MILLI (acute kidney injury): Code(s): N17.9 - Acute kidney failure, unspecified Status: Acute Assessment and Plan: Likely to be pre renal azotemia due to vomiting and dehydration. Repeat BMP was slightly improved with a creatinine 1.5. Will continue IV fluid hydration. Recheck BMP in the morning. (3) Gastritis: Code(s): K29.70 - Gastritis, unspecified, without bleeding Status: Acute Assessment and Plan: See above (4) Reflux esophagitis: Code(s): K21.00 - Gastro-esophageal reflux disease with esophagitis, without bleeding Status: Acute Assessment and Plan: See above (5) H pylori ulcer: Code(s): K27.9 - Peptic ulcer, site unspecified, unspecified as acute or chronic, without hemorrhage or perforation; B96.81 - Helicobacter pylori [H. 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 (8) Diabetic peripheral neuropathy: Code(s): E11.42 - Type 2 diabetes mellitus with diabetic polyneuropathy Status: Acute Assessment and Plan: Follow-up in outpatient setting (9) Alcoholism: Code(s): F10.20 - Alcohol dependence, uncomplicated Status: Acute Assessment and Plan: Has been abstinent for over a month. Ethyl alcohol was less than 10. (10) Tobacco dependence: Code(s): F17.200 - Nicotine dependence, unspecified, uncomplicated Status: Acute Assessment and Plan: Nicotine patch as needed (11) Diabetes mellitus: Code(s): E11.9 - Type 2 diabetes mellitus without complications Status: Acute Assessment and Plan: Patient has uncontrolled diabetes with a hemoglobin A1c of 12.4%. Patient states he has been taking metformin which was given to him by the emergency room. He states he checks his glucose occasionally in its 170-200. His last visit a few months ago he was placed on glimepiride, which he states he ran out of and he does number primary care provider to refill the medication. I asked him if he has gone to [facility] and he status he has in the past but he is not currently going there. I told him he needs to go there to have a primary care provider and get medications refilled to better control his diabetes. He understands. While here we are holding his metformin due to MILLI. Ordered NovoLog 4 units subQ t.i.d. with meals as well as sliding scale insulin. Lantus will be started 9 Units Hypoglycemic protocol in place. Continue monitoring a.c. HS Time Spent With Patient Time with patient: 25 - 35 minutes Subjective Date/time seen: 07/28/21 15:29 Interval history: Date of Servic
[2021-07-28 17:04] LABS: Glucose Point of Care 335 mg/dl (65-105)
[2021-07-28] MEDS: INSULIN GLARGINE (*BKC) 100 UNITS/ML 7 UNITS SUB-Q (21:31)
[2021-07-28] MEDS: CLARITHROMYCIN 500 MG TABLET PO (21:48)
[2021-07-28] MEDS: AMOXICILLIN 500 MG CAPSULE 1000 MG PO (21:48)
[2021-07-28 22:56] LABS: Glucose Point of Care 286 mg/dl (65-105)
[2021-07-29] VITALS (9 sets, daily range): BP systolic 77–161; BP diastolic 55–97; PULSE 81–98; RESP 16–20; TEMP 36.3–37.1; O2SAT 97–100
[2021-07-29] MEDS: LACTATED RINGERS 1,000 ML 75 ML IV CONT ×2 (02:45→17:26)
[2021-07-29] MEDS: SUCRALFATE SUSP 100 MG/ML 10 ML UDC 1000 MG PO ×4 (05:21→21:41)
[2021-07-29 06:53] LABS: Basophils Percent Auto 0.3 % (0.2-1.2); Eosinophils Absolute Auto 0.1 K/mm3 (0-0.3); Eosinophils Percent Auto 1.1 % (0-4.4); Hematocrit 31.7 % (42.0-52.0); Hemoglobin 10.8 g/dL (14.0-18.0); Immature Granulocyte Absolute 0.04 K/mm3 (0.00-0.031); Immature Granulocyte Percent A 0.3 % (0-0.5); Lymphocytes Absolute Auto 3.03 K/mm3 (0.9-3.2); Lymphocytes Percent Auto 24.7 % (18.3-44.2); Mean Corpuscular HGB Conc 34.1 g/dl (32-36); Mean Corpuscular Volume 88.1 fl (80-100); Mean Platelet Volume 9.3 fl (7.4-10.4); Monocytes Absolute Auto 1.1 K/mm3 (0.1-0.6); Monocytes Percent Auto 8.7 % (2.6-8.5); Neutrophils Percent Auto 64.9 % (45.5-73.1); Platelet Count Result 268 k/mm3 (150-375); Red Cell Distribution Width 11.7 % (11.5-14.5); White Blood Count 12.3 K/mm3 (4.5-10.0)
[2021-07-29 07:10] LABS: Anion Gap 7 mmol/L (8-16); Blood Urea Nitrogen 32 mg/dL (9-20); Calcium 9.1 mg/dL (8.4-10.2); Carbon Dioxide 31 mmol/L (22-30); Chloride 100 mmol/L (98-107); Estimated CRCL calculation 71 ml/min; Estimated Glomerular Filt Rate > 60; Glucose 225 mg/dL (65-110); Potassium 4.1 mmol/L (3.4-5.0); Sodium 138 mmol/L (137-145)
[2021-07-29 08:15] LABS: Glucose Point of Care 224 mg/dl (65-105)
[2021-07-29] MEDS: INSULIN ASPART (*BKC) 100 UNITS/ML SUB-Q ×3 (09:04→17:29)
[2021-07-29] MEDS: CLARITHROMYCIN 500 MG TABLET PO ×2 (09:05→21:00)
[2021-07-29] MEDS: PANTOPRAZOLE SODIUM IV 40 MG VIAL IV PUSH ×2 (09:06→21:42)
[2021-07-29] MEDS: AMOXICILLIN 500 MG CAPSULE 1000 MG PO ×2 (09:06→21:40)
--- NOTE | 2021-07-29 10:20 | WPDANESPN ---
Anes - Prog Note Post-Op Date/Time: 07/29/21 10:20 Cardiovascular status: normal Respiratory status: normal Airway patency: baseline Mental status: baseline Post-Op hydration status: normal Vital Signs: Last Vital Signs Temp 98.8 F 07/29/21 08:00 Pulse 81 07/29/21 08:00 Resp 20 07/29/21 08:00 BP 122/82 07/29/21 08:00 Pulse Ox 97 07/29/21 08:00 Pain Score (VAS): 0/10 I/O: Intake & Output 07/28/21 07/29/21 07/29/21 23:59 07:59 15:59 Intake Total 490 400 600 Output Total 700 Balance 490 -300 600 Laboratory Tests 07/29/21 06:31 07/29/21 06:31 07/28/21 07/28/21 07/28/21 05:56 12:13 17:01 WBC RBC Hgb Hct MCV MCH MCHC RDW Plt Count MPV Immature Gran % (Auto) Neut % (Auto) Lymph % (Auto) [place] % (Auto) Eos % (Auto) Baso % (Auto) Lymph # (Auto) [place] # (Auto) Eos # (Auto) Baso # (Auto) Abs Immat Gran (auto) Absolute Neuts (auto) Absolute Nucleated RBC Nucleated RBC % Sodium Potassium Chloride Carbon Dioxide Anion Gap BUN Creatinine Estim Creat Clear Calc Estimated GFR Glucose POC Capillary Glucose 294 H 335 H Hemoglobin A1c 12.4 H Calcium 07/28/21 07/29/21 07/29/21 19:56 06:31 06:31 WBC 12.3 H RBC 3.60 L Hgb 10.8 L Hct 31.7 L MCV 88.1 MCH 30.0 MCHC 34.1 RDW 11.7 Plt Count 268 MPV 9.3 Immature Gran % (Auto) 0.3 Neut % (Auto) 64.9 Lymph % (Auto) 24.7 [place] % (Auto) 8.7 H Eos % (Auto) 1.1 Baso % (Auto) 0.3 Lymph # (Auto) 3.03 [place] # (Auto) 1.1 H Eos # (Auto) 0.1 Baso # (Auto) 0.0 Abs Immat Gran (auto) 0.04 H Absolute Neuts (auto) 8.0 H Absolute Nucleated RBC 0.0 Nucleated RBC % 0.0 Sodium 138 Potassium 4.1 Chloride 100 Carbon Dioxide 31 H Anion Gap 7 L BUN 32 H D Creatinine 1.00 Estim Creat Clear Calc 71 Estimated GFR > 60 Glucose 225 H POC Capillary Glucose 286 H Hemoglobin A1c Calcium 9.1 07/29/21 08:10 WBC RBC Hgb Hct MCV MCH MCHC RDW Plt Count MPV Immature Gran % (Auto) Neut % (Auto) Lymph % (Auto) [place] % (Auto) Eos % (Auto) Baso % (Auto) Lymph # (Auto) [place] # (Auto) Eos # (Auto) Baso # (Auto) Abs Immat Gran (auto) Absolute Neuts (auto) Absolute Nucleated RBC Nucleated RBC % Sodium Potassium Chloride Carbon Dioxide Anion Gap BUN Creatinine Estim Creat Clear Calc Estimated GFR Glucose POC Capillary Glucose 224 H Hemoglobin A1c Calcium Patient Feedback: Patient satisfied with anesthetic care.
[2021-07-29 12:01] LABS: Glucose Point of Care 261 mg/dl (65-105)
--- NOTE | 2021-07-29 16:14 | PM.IMPN ---
Progress Note: A&P Assessment and Plan (1) Orthostatic hypotension: Code(s): I95.1 - Orthostatic hypotension Status: Acute Assessment and Plan: Patient was feeling lightheaded and dizzy earlier whenever he stood up. Orthostatic vital signs were checked on him which were very abnormal. Blood pressure went from 160 systolic laying, to 100 sitting, to 77 standing. Patient was symptomatic. Will continue IV fluid hydration. Will apply Terence hose as well. Recheck orthostatics in the morning. (2) Coffee ground emesis: Code(s): K92.0 - Hematemesis Status: Acute Assessment and Plan: Patient came in with coffee-ground emesis. He had an EGD today by Dr. Wilson who found reflux esophagitis and gastritis. Recommends PPI 40 mg twice daily and adding Carafate ACHS for 2 weeks. Biopsy completed during EGD shows positive H pylori testing so also being treated with clarithromycin, amoxicillin for 14 days. Patient feeling better in eating drinking without any issues. P.r.n. antiemetics. Advance diet as tolerated. Appreciate GI input. Continue monitoring (3) MILLI (acute kidney injury): Code(s): N17.9 - Acute kidney failure, unspecified Status: Acute Assessment and Plan: Likely to be pre renal azotemia due to vomiting and dehydration. Renal function improved from a creatinine 1.5-1.0 today. Will continue IV fluids due to orthostatic hypotension. Recheck BMP in the morning. (4) Gastritis: Code(s): K29.70 - Gastritis, unspecified, without bleeding Status: Acute Assessment and Plan: See above (5) Erosive esophagitis: Code(s): K22.10 - Ulcer of esophagus without bleeding Status: Acute Assessment and Plan: See above (6) H pylori ulcer: Code(s): K27.9 - Peptic ulcer, site unspecified, unspecified as acute or chronic, without hemorrhage or perforation; B96.81 - Helicobacter pylori [H. pylori] as the cause of diseases classified elsewhere Status: Acute Assessment and Plan: See above (7) Nausea & vomiting: Qualifiers: Vomiting Intractability: non-intractable Vomiting type: unspecified Qualified Code(s): R11.2 - Nausea with vomiting, unspecified Code(s): R11.2 - Nausea with vomiting, unspecified Status: Acute Assessment and Plan: Resolved. (8) Amphetamine abuse: Code(s): F15.10 - Other stimulant abuse, uncomplicated Status: Acute Assessment and Plan: Patient denies any withdrawal symptoms at this time. (9) Diabetic peripheral neuropathy: Code(s): E11.42 - Type 2 diabetes mellitus with diabetic polyneuropathy Status: Acute Assessment and Plan: Follow-up in outpatient setting (10) Alcoholism: Code(s): F10.20 - Alcohol dependence, uncomplicated Status: Acute Assessment and Plan: Has been abstinent for over a month. Ethyl alcohol was less than 10. (11) Tobacco dependence: Code(s): F17.200 - Nicotine dependence, unspecified, uncomplicated Status: Acute Assessment and Plan: Nicotine patch as needed (12) Diabetes mellitus: Code(s): E11.9 - Type 2 diabetes mellitus without complications Status: Acute Assessment and Plan: Patient has uncontrolled diabetes with a hemoglobin A1c of 12.4%. Patient states he has been taking metformin which was given to him by the emergency room. He states he c
[2021-07-29] MEDS: MECLIZINE HCL 12.5 MG TABLET PO ×2 (17:05→21:41)
[2021-07-29] MEDS: SACCHAROMYCES BOULARDII 250 MG CAPSULE PO (17:06)
[2021-07-29] MEDS: BENZOCAINE/MENTHOL (*BKC) 18 EA LOZENGE 1 LOZENGE PO ×2 (17:07→21:39)
--- NOTE | 2021-07-29 17:08 | WPDGIPROGNO ---
Progress Note: A&P Assessment and Plan (1) Erosive esophagitis: Code(s): K22.10 - Ulcer of esophagus without bleeding Status: Acute Assessment and Plan: continue with ppi bid and avoid nsaid's also had + H pylori and started on triple therapy to complete 2 weeks EGD in 3 months to assess for healing same time we can do a colonoscopy for screening purpose since he never had one (2) H pylori ulcer: Code(s): K27.9 - Peptic ulcer, site unspecified, unspecified as acute or chronic, without hemorrhage or perforation; B96.81 - Helicobacter pylori [H. pylori] as the cause of diseases classified elsewhere Status: Acute (3) Coffee ground emesis: Code(s): K92.0 - Hematemesis Status: Acute Assessment and Plan: resolved from egd findings (4) Uncontrolled diabetes mellitus: Code(s): E11.65 - Type 2 diabetes mellitus with hyperglycemia Status: Acute Assessment and Plan: on medical management now (5) Nausea & vomiting: Qualifiers: Vomiting Intractability: non-intractable Vomiting type: unspecified Qualified Code(s): R11.2 - Nausea with vomiting, unspecified Code(s): R11.2 - Nausea with vomiting, unspecified Status: Acute Subjective Date/time seen: 07/29/21 17:08 Interval history: eating more and less nauseous today, EGD showed severe erosive esophagitis with ulcerative gastritis and had + H pylori Review of Systems Review of Systems: All systems reviewed & are unremarkable except as noted in HPI and below Exam Const: General: comfortable and no acute distress HENMT: General nose exam: Normal nares present Eyes: General: appearance normal, both eyes and all related structures Neck: Neck: no JVD Resp: Auscultation: clear to auscultation bilaterally Cardio: Rate: regular rate Rhythm: regular rhythm GI: Inspection: non-distended GI Palp: Yes Soft to palpation Skin: General skin exam: normal color Neuro: General: gait normal Speech: normal speech Extrem: General: normal to inspection Psych: Mental Status: mental status grossly normal Objective Data Vital Signs Vital Signs: Vital Signs - 24 hr 07/28/21 20:00 07/29/21 00:00 07/29/21 04:00 Temperature 97.9 F 97.9 F 97.8 F Pulse Rate 83 87 85 Respiratory Rate 16 18 18 Blood Pressure 100/60 136/87 128/84 Pulse Oximetry 99 99 99 07/29/21 08:00 07/29/21 12:00 07/29/21 16:00 Temperature 98.8 F 98.3 F 98.3 F Pulse Rate 81 84 87 Respiratory Rate 20 20 18 Blood Pressure 122/82 143/78 H 104/70 Pulse Oximetry 97 100 97 Intake/Output Intake/Output: Intake & Output 07/26/21 07/27/21 07/28/21 07/29/21 23:59 23:59 23:59 23:59 Intake Total 1930 1480 Output Total 625 700 Balance 1305 780 Meds/Results Medications: Active Medications Generic Name Dose Route Start Last Admin Trade Name Freq PRN Reason Stop Dose Admin Albuterol 2 puff 07/29/21 16:15 Albuterol Sulfate (*Sp) Aerosol 1 Puff INHALATION QIDRT PRN Shortness Of Breath Amoxicillin 1,000 mg 07/28/21 21:00 07/29/21 09:06 Amoxicillin 500 Mg Capsule PO 08/11/21 20:59 1,000 mg Q12HR WEI Administration Benzocaine 1 lozenge 07/29/21 16:16 07/29/21 17:07 Benzocaine/Menthol (*Bkc) 18 Ea Lozenge PO 1 lozenge PRN PRN Administration Sore Throat Clarithromycin 500 mg 07/28/21 21:00 07/29/21 09:05 Clarithromycin 500 Mg Tablet PO 08/11/21 20:59 500 mg Q12HR WEI Administration Dextrose 12.5 gm 07/28/21 16:30 Dextrose 50% 25 Gm/50 Ml Syringe IV PUSH PRN PRN Hypoglycemia Protocol Glucagon 1 mg 07/28/21 16:30 Glucagon For Inj 1 Mg Vial IM PRN PRN Hypoglycemia Protocol Glucose 15 gm 07/28/21 16:30 Glucose Oral Gel 15 Gm Of Glucse In 37.5 Gm Tube PO PRN PRN Hypoglycemia Protocol Guaifenesin/Dextromethorphan 5 ml 07/29/21 16:16 Guaifenesin/Dextromethorphan 10 Ml Udc PO Q4H PRN
[2021-07-29 17:17] LABS: Glucose Point of Care 191 mg/dl (65-105)
[2021-07-29] MEDS: INSULIN GLARGINE (*BKC) 100 UNITS/ML 10 UNITS SUB-Q (21:48)
[2021-07-29 21:51] LABS: Glucose Point of Care 218 mg/dl (65-105)
[2021-07-30] VITALS (14 sets, daily range): BP systolic 75–158; BP diastolic 43–92; PULSE 64–93; RESP 12–20; TEMP 36.5–37.3; O2SAT 96–100
--- NOTE | 2021-07-30 | ECHO_ITS ---
Patient Info Name: Jamil Gallo Age: 45 years : 1975 Gender: Male Ht: 70 in Wt: 137 lbs BSA: 1.74 m2 HR: 97 bpm BP: 109 / 69 mmHg Technical Quality: Good Exam Date: 07/30/2021 1:25 PM Exam Location: [facility] Patient Status: Inpatient Admit Date: 07/30/2021 Staff Ordering Physician: Katharine Raza PA-C Healthcare Financial Analyst: Angelica Ayala RDCS Attending Provider: Katharine Raza PA-C Referring Physician: Ry MCPHERSON; Exam Type: CA echo doppler color flow Study Info Indications - ORTHOSTATIC HYPOTENSION Complete two-dimensional, color flow and Doppler transthoracic echocardiogram is performed. Summary 1. Complete two-dimensional, color flow and Doppler transthoracic echocardiogram is performed. 2. Left ventricular chamber dimension is normal. 3. Left ventricular systolic function is normal, estimated at 60-65%. 4. The left ventricular diastolic function is grade I diastolic dysfunction. 5. E/e' 7 is not elevated. 6. Global longitudinal strain is abnormal at -15.6%. Left Ventricle E/e' 7 is not elevated. Global longitudinal strain is abnormal at -15.6%. Left ventricular chamber dimension is normal. Left ventricular systolic function is normal, estimated at 60-65%. The left ventricular diastolic function is grade I diastolic dysfunction. Right Ventricle Right ventricular chamber dimension is normal. Right ventricular systolic function is normal. Left Atria Left atrial chamber dimension is normal. Right Atria Right atrial chamber dimension is normal. Aortic Valve The aortic valve is trileaflet. There is no aortic valve stenosis. There is no aortic valve regurgitation. Pulmonic Valve There is no pulmonic regurgitation. Mitral Valve There is no mitral valve stenosis. There is no mitral valve regurgitation. Tricuspid Valve There is no tricuspid valve regurgitation. Pericardium/Pleural There is no pericardial effusion. Inferior Vena Cava Normal inferior vena cava with >50% collapse upon inspiration consistent with normal right atrial pressure, 5 mmHg. Aorta The aortic root size at the sinus of Valsalva is normal. Tricuspid Valve Name Value Normal Estimated PAP/RSVP RA Pressure 5 mmHg <=5 Report Signatures
[2021-07-30] MEDS: SUCRALFATE SUSP 100 MG/ML 10 ML UDC 1000 MG PO ×4 (05:41→21:15)
[2021-07-30] MEDS: LACTATED RINGERS 1,000 ML 75 ML IV CONT (05:43)
[2021-07-30 06:47] LABS: Hematocrit 32.3 % (42.0-52.0); Hemoglobin 11.2 g/dL (14.0-18.0); Mean Corpuscular HGB Conc 34.7 g/dl (32-36); Mean Corpuscular Hemoglobin 31.1 pg (26-34); Mean Corpuscular Volume 89.7 fl (80-100); Mean Platelet Volume 9.5 fl (7.4-10.4); Platelet Count Result 258 k/mm3 (150-375); Red Cell Distribution Width 11.8 % (11.5-14.5); White Blood Count 11.8 K/mm3 (4.5-10.0)
[2021-07-30 07:11] LABS: Anion Gap 7 mmol/L (8-16); Blood Urea Nitrogen 16 mg/dL (9-20); Calcium 8.9 mg/dL (8.4-10.2); Carbon Dioxide 30 mmol/L (22-30); Chloride 101 mmol/L (98-107); Estimated CRCL calculation 88 ml/min; Estimated Glomerular Filt Rate > 60; Glucose 218 mg/dL (65-110); Potassium 3.9 mmol/L (3.4-5.0); Sodium 138 mmol/L (137-145)
--- NOTE | 2021-07-30 08:00 | PC.NURSE ---
Patient speaks Indonesian with limited understanding of [place]olan. [employer] interpretation system used for physical assessment and explaining plan of care to patient. Also discussed dizziness and orthostatic hypotension. Patient voices understanding. Patient denies pain or distress. States he did become dizzy/lightheaded when out of bed at 4 a.m. with staff. Patient understands the need to call for assistance to the bathroom.
[2021-07-30 08:14] LABS: Glucose Point of Care 208 mg/dl (65-105)
[2021-07-30] MEDS: MECLIZINE HCL 12.5 MG TABLET PO (08:46)
[2021-07-30] MEDS: PANTOPRAZOLE SODIUM IV 40 MG VIAL IV PUSH ×2 (08:46→21:15)
[2021-07-30] MEDS: CLARITHROMYCIN 500 MG TABLET PO ×2 (08:46→21:15)
[2021-07-30] MEDS: SACCHAROMYCES BOULARDII 250 MG CAPSULE PO ×2 (08:46→17:00)
[2021-07-30] MEDS: AMOXICILLIN 500 MG CAPSULE 1000 MG PO ×2 (08:46→21:14)
[2021-07-30] MEDS: INSULIN ASPART (*BKC) 100 UNITS/ML 6 UNITS SUB-Q ×3 (08:49→17:00)
[2021-07-30 12:16] LABS: Glucose Point of Care 245 mg/dl (65-105)
--- NOTE | 2021-07-30 16:30 | PM.IMPN ---
Progress Note: A&P Assessment and Plan (1) Orthostatic hypotension: Code(s): I95.1 - Orthostatic hypotension Status: Acute Assessment and Plan: Patient was feeling lightheaded and dizzy. Orthostatic vital signs were checked on him which were very abnormal. Blood pressure went from 160 systolic laying, to 100 sitting, to 77 standing. Patient was symptomatic. 07/30/21: Patient is still orthostatic today with Terence hose on. Increased IV fluids to 100 cc/hour and will recheck orthostatics in the morning. Will also order an echocardiogram due to orthostatic hypotension and long history of untreated medical problems Will continue IV fluid hydration. Will apply Terence hose as well. Recheck orthostatics in the morning. (2) Coffee ground emesis: Code(s): K92.0 - Hematemesis Status: Acute Assessment and Plan: Patient came in with coffee-ground emesis. He had an EGD today by Dr. Wilson who found reflux esophagitis and gastritis. Recommends PPI 40 mg twice daily and adding Carafate ACHS for 2 weeks. Biopsy completed during EGD shows positive H pylori testing so also being treated with clarithromycin, amoxicillin for 14 days. Patient feeling better in eating drinking without any issues. P.r.n. antiemetics. Advance diet as tolerated. Appreciate GI input. Continue monitoring (3) MILLI (acute kidney injury): Code(s): N17.9 - Acute kidney failure, unspecified Status: Acute Assessment and Plan: Likely to be pre renal azotemia due to vomiting and dehydration. Renal function improved from a creatinine 1.5-1.0 today. Will continue IV fluids due to orthostatic hypotension. Recheck BMP in the morning. (4) Gastritis: Code(s): K29.70 - Gastritis, unspecified, without bleeding Status: Acute Assessment and Plan: See above (5) Erosive esophagitis: Code(s): K22.10 - Ulcer of esophagus without bleeding Status: Acute Assessment and Plan: See above (6) H pylori ulcer: Code(s): K27.9 - Peptic ulcer, site unspecified, unspecified as acute or chronic, without hemorrhage or perforation; B96.81 - Helicobacter pylori [H. pylori] as the cause of diseases classified elsewhere Status: Acute Assessment and Plan: See above (7) Nausea & vomiting: Qualifiers: Vomiting Intractability: non-intractable Vomiting type: unspecified Qualified Code(s): R11.2 - Nausea with vomiting, unspecified Code(s): R11.2 - Nausea with vomiting, unspecified Status: Acute Assessment and Plan: Resolved. (8) Amphetamine abuse: Code(s): F15.10 - Other stimulant abuse, uncomplicated Status: Acute Assessment and Plan: Patient denies any withdrawal symptoms at this time. (9) Diabetic peripheral neuropathy: Code(s): E11.42 - Type 2 diabetes mellitus with diabetic polyneuropathy Status: Acute Assessment and Plan: Follow-up in outpatient setting (10) Alcoholism: Code(s): F10.20 - Alcohol dependence, uncomplicated Status: Acute Assessment and Plan: Has been abstinent for over a month. Ethyl alcohol was less than 10. (11) Tobacco dependence: Code(s): F17.200 - Nicotine dependence, unspecified, uncomplicated Status: Acute Assessment and Plan: Nicotine patch as needed (12) Diabetes mellitus: Code(s): E11.9 - Type 2 diabetes mellitus without co
--- NOTE | 2021-07-30 17:22 | WPDGIPROGNO ---
Progress Note: A&P Assessment and Plan (1) H pylori ulcer: Code(s): K27.9 - Peptic ulcer, site unspecified, unspecified as acute or chronic, without hemorrhage or perforation; B96.81 - Helicobacter pylori [H. pylori] as the cause of diseases classified elsewhere Status: Acute Assessment and Plan: already started on treatment for h pylori (total of 2 weeks)- he can complete it at home (2) Erosive esophagitis: Code(s): K22.10 - Ulcer of esophagus without bleeding Status: Acute Assessment and Plan: continue with ppi bid and avoid nsaid's EGD in 3 months to assess for healing, also we can check more bx to check for h pylori eradication same time we can do a colonoscopy for screening purpose since he never had one (3) Coffee ground emesis: Code(s): K92.0 - Hematemesis Status: Acute Assessment and Plan: resolved from egd findings (4) Uncontrolled diabetes mellitus: Code(s): E11.65 - Type 2 diabetes mellitus with hyperglycemia Status: Acute Assessment and Plan: on medical management now (5) Nausea & vomiting: Qualifiers: Vomiting Intractability: non-intractable Vomiting type: unspecified Qualified Code(s): R11.2 - Nausea with vomiting, unspecified Code(s): R11.2 - Nausea with vomiting, unspecified Status: Acute Assessment and Plan: resolved Subjective Date/time seen: 07/30/21 17:22 Interval history: he is feeling better, tolerating diet, only minimal abdominal discomfort but improved Review of Systems Review of Systems: All systems reviewed & are unremarkable except as noted in HPI and below Exam Const: General: comfortable and no acute distress HENMT: General nose exam: Normal nares present Eyes: General: appearance normal, both eyes and all related structures Neck: Neck: no JVD Resp: Auscultation: clear to auscultation bilaterally Cardio: Rate: regular rate Rhythm: regular rhythm GI: Inspection: non-distended GI Palp: Yes Soft to palpation Skin: General skin exam: normal color Neuro: General: gait normal Speech: normal speech Extrem: General: normal to inspection Psych: Mental Status: mental status grossly normal Objective Data Vital Signs Vital Signs: Vital Signs - 24 hr 07/29/21 20:00 07/30/21 00:00 07/30/21 04:00 Temperature 97.4 F L 98.2 F 97.7 F Pulse Rate 98 93 84 Respiratory Rate 18 18 18 Blood Pressure 135/89 136/83 117/77 Pulse Oximetry 97 99 99 07/30/21 08:00 07/30/21 08:05 07/30/21 08:10 Temperature Pulse Rate Respiratory Rate Blood Pressure 108/64 94/62 L 75/43 L Pulse Oximetry 07/30/21 08:44 07/30/21 12:34 07/30/21 15:04 Temperature 99.1 F 98.4 F Pulse Rate 75 93 Respiratory Rate 12 14 Blood Pressure 109/69 88/57 L 142/90 H Pulse Oximetry 96 98 07/30/21 15:06 07/30/21 16:39 Temperature 98.5 F Pulse Rate 81 Respiratory Rate 12 Blood Pressure 88/50 L 91/60 L Pulse Oximetry 97 Intake/Output Intake/Output: Intake & Output 07/27/21 07/28/21 07/29/21 07/30/21 23:59 23:59 23:59 23:59 Intake Total 1930 3270 1480 Output Total 625 1200 1000 Balance 1305 2070 480 Meds/Results Medications: Active Medications Generic Name Dose Route Start Last Admin Trade Name Freq PRN Reason Stop Dose Admin Albuterol 2 puff 07/29/21 16:15 Albuterol Sulfate (*Sp) Aerosol 1 Puff INHALATION QIDRT PRN Shortness Of Breath Amoxicillin 1,000 mg 07/28/21 21:00 07/30/21 08:46 Amoxicillin 500 Mg Capsule PO 08/11/21 20:59 1,000 mg Q12HR WEI Administration Benzocaine 1 lozenge 07/29/21 16:16 07/29/21 21:39 Benzocaine/Menthol (*Bkc) 18 Ea Lozenge PO 1 lozenge PRN PRN Administration Sore Throat Clarithromycin 500 mg 07/28/21 21:00 07/30/21 08:46 Clarithromycin 500 Mg Tablet PO 08/11/21 20:59 500 mg Q12HR WEI Administration Dextrose 12.5 gm 07/28/21 16:30 Dextrose 50% 25 Gm/50 Ml
[2021-07-30 17:42] LABS: Glucose Point of Care 154 mg/dl (65-105)
[2021-07-30] MEDS: LACTATED RINGERS 1,000 ML 100 ML IV CONT (17:43)
[2021-07-30 21:27] LABS: Glucose Point of Care 78 mg/dl (65-105)
[2021-07-30 21:27] LABS: Glucose Point of Care 151 mg/dl (65-105)
[2021-07-31] MEDS: LACTATED RINGERS 1,000 ML 100 ML IV CONT (04:02)
[2021-07-31 06:00] VITALS: BP 129/82; PULSE 78; RESP 20; TEMP 37.1; O2SAT 99
[2021-07-31] MEDS: SUCRALFATE SUSP 100 MG/ML 10 ML UDC 1000 MG PO ×2 (06:11→12:10)
[2021-07-31 08:00] VITALS: PULSE 78; RESP 20; O2SAT 99
[2021-07-31 08:05] VITALS: BP 101/72
[2021-07-31 08:15] LABS: Glucose Point of Care 202 mg/dl (65-105)
[2021-07-31 08:27] VITALS: BP 140/89
[2021-07-31 08:29] VITALS: BP 125/94
[2021-07-31] MEDS: INSULIN ASPART (*BKC) 100 UNITS/ML 6 UNITS SUB-Q ×2 (08:29→12:13)
[2021-07-31] MEDS: AMOXICILLIN 500 MG CAPSULE 1000 MG PO (08:29)
[2021-07-31] MEDS: PANTOPRAZOLE SODIUM IV 40 MG VIAL IV PUSH (08:30)
[2021-07-31] MEDS: SACCHAROMYCES BOULARDII 250 MG CAPSULE PO (08:30)
[2021-07-31] MEDS: CLARITHROMYCIN 500 MG TABLET PO (12:10)
--- NOTE | 2021-07-31 12:40 | WPDGIPROGNO ---
Progress Note: A&P Assessment and Plan (1) H pylori ulcer: Code(s): K27.9 - Peptic ulcer, site unspecified, unspecified as acute or chronic, without hemorrhage or perforation; B96.81 - Helicobacter pylori [H. pylori] as the cause of diseases classified elsewhere Status: Acute Assessment and Plan: already started on treatment for h pylori (total of 2 weeks) he can go home by gi standpoint (2) Erosive esophagitis: Code(s): K22.10 - Ulcer of esophagus without bleeding Status: Acute Assessment and Plan: continue with ppi bid and avoid nsaid's EGD in 3 months to assess for healing, also we can get more bx to confirm h pylori eradication same time we can do a colonoscopy for screening purpose since he never had one (3) Coffee ground emesis: Code(s): K92.0 - Hematemesis Status: Acute Assessment and Plan: resolved (4) Uncontrolled diabetes mellitus: Code(s): E11.65 - Type 2 diabetes mellitus with hyperglycemia Status: Acute Assessment and Plan: on medical management now (5) Nausea & vomiting: Qualifiers: Vomiting Intractability: non-intractable Vomiting type: unspecified Qualified Code(s): R11.2 - Nausea with vomiting, unspecified Code(s): R11.2 - Nausea with vomiting, unspecified Status: Acute Assessment and Plan: resolved Subjective Date/time seen: 07/31/21 12:40 Interval history: no new complaints, tolerating diet, no nausea he would like to talk to community mental health social worker how to get new prescription glasses (he does not have insurance) Review of Systems Review of Systems: All systems reviewed & are unremarkable except as noted in HPI and below Exam Const: General: comfortable and no acute distress HENMT: General nose exam: Normal nares present Eyes: General: appearance normal, both eyes and all related structures Neck: Neck: no JVD Resp: Auscultation: clear to auscultation bilaterally Cardio: Rate: regular rate Rhythm: regular rhythm GI: Inspection: non-distended GI Palp: Yes Soft to palpation Skin: General skin exam: normal color Neuro: General: gait normal Speech: normal speech Extrem: General: normal to inspection Psych: Mental Status: mental status grossly normal Objective Data Vital Signs Vital Signs: Vital Signs - 24 hr 07/30/21 15:04 07/30/21 15:06 07/30/21 16:39 Temperature 98.5 F Pulse Rate 81 Respiratory Rate 12 Blood Pressure 142/90 H 88/50 L 91/60 L Pulse Oximetry 97 07/30/21 20:00 07/30/21 20:01 07/30/21 20:02 Temperature 98.5 F 98.3 F 98.3 F Pulse Rate 86 92 91 Respiratory Rate 20 20 20 Blood Pressure 129/86 101/69 83/56 L Pulse Oximetry 100 100 99 07/30/21 22:00 07/31/21 06:00 07/31/21 08:00 Temperature 98.5 F 98.7 F Pulse Rate 64 78 78 Respiratory Rate 20 20 20 Blood Pressure 146/64 H 129/82 Pulse Oximetry 97 99 99 07/31/21 08:05 07/31/21 08:27 07/31/21 08:29 Temperature Pulse Rate Respiratory Rate Blood Pressure 101/72 140/89 125/94 H Pulse Oximetry Intake/Output Intake/Output: Intake & Output 07/28/21 07/29/21 07/30/21 07/31/21 23:59 23:59 23:59 23:59 Intake Total 1930 3270 3270 1910 Output Total 625 1200 1000 600 Balance 1305 2070 2270 1310 Meds/Results Medications: Active Medications Generic Name Dose Route Start Last Admin Trade Name Freq PRN Reason Stop Dose Admin Albuterol 2 puff 07/29/21 16:15 Albuterol Sulfate (*Sp) Aerosol 1 Puff INHALATION QIDRT PRN Shortness Of Breath Amoxicillin 1,000 mg 07/28/21 21:00 07/31/21 08:29 Amoxicillin 500 Mg Capsule PO 08/11/21 20:59 1,000 mg Q12HR WEI Administration Benzocaine 1 lozenge 07/29/21 16:16 07/29/21 21:39 Benzocaine/Menthol (*Bkc) 18 Ea Lozenge PO 1 lozenge PRN PRN Administration Sore Throat Clarithromycin 500 mg 07/28/21 21:00 07/31/21 12:10 Clarithromycin 500 Mg Tablet PO 08/11/21 20:59 500 mg Q12
[2021-07-31 12:43] LABS: Glucose Point of Care 133 mg/dl (65-105)
--- NOTE | 2021-07-31 13:23 | PM.DS ---
DS: Admitting Diagnosis Discharge Date 07/31/21 Admitting Diagnosis Coffee ground emesis DS: Discharge Diagnosis Discharge Diagnosis (1) Orthostatic hypotension: Code(s): I95.1 - Orthostatic hypotension Status: Acute Assessment and Plan: The patient is a 45-year-old man with a past medical history of uncontrolled diabetes, CKD, hypertension, substance abuse, tobacco dependence, cerebellar dysfunction, who presented to the emergency room with coffee-ground emesis. The patient had woken up that morning and had 20 episodes of vomiting and was reported to be coffee-ground emesis with associated abdominal pain. He did use crystal meth the day before. He does not have a primary care provider, does not take medications regularly or monitors his glucose. Initial vitals shows elevated blood pressure 160/99, tachycardic heart rate 113, increased respiratory rate at 24, afebrile, normal oxygenation room air. Initial labs showed leukocytosis at 12,800, normocytic anemia with a hemoglobin of 12, hematocrit 34, slight hyponatremia at 136, elevated creatinine at 1.7, BUN 48, elevated glucose of 486, elevation of alkaline phosphatase, normal AST, ALT. Normal lipase. Urinalysis shows 3+ glucose, 1+ ketones, urine drug screen shows positive for amphetamines. CT abdomen pelvis on arrival showed no acute correlation for the patient's symptoms. Patient was admitted into the hospital with a consult to GI and IV fluid hydration. He had an EGD which showed positive H pylori, moderate ulcerative gastritis, severe reflux esophagitis. Recommends Protonix 40 mg twice daily, Carafate with meals for 2 weeks, H pylori treatment with clarithromycin, amoxicillin, for 14 days. Recommends a follow-up EGD in 3 months to assess for healing. The patient was doing well with current treatment in eating and drinking without any issues. Then he was reporting lightheadedness and found to have positive orthostatic vital signs. Continued IV fluid hydrations, Terence hose, and obtained an echocardiogram which showed normal EF, diastolic grade 1. He eventually began feeling better without any more orthostatics. Spent much time discussing everything with the patient and the educational sign language interpreter. Explained the importance of his diabetes and needing to check his glucose, had to take his insulin, he needing to follow-up with a local clinic to establish a primary care provider so they can refill these medications. I explained the importance of taking his PPI and H pylori treatment in full. Patient understands and agrees the plan all questions answered. Return to ER warnings given the patient understands and agrees with the plan all questions answered. (2) Coffee ground emesis: Code(s): K92.0 - Hematemesis Status: Acute Assessment and Plan: (3) MILLI (acute kidney injury): Code(s): N17.9 - Acute kidney failure, unspecified Status: Acute Assessment and Plan: Improved with IV fluids (4) Gastritis: Code(s): K29.70 - Gastritis, unspecified, without bleeding Status: Acute Assessment and Plan: See above (5) Erosive esophagitis: Code(s): K22.10 - Ulcer of esophagus without bleeding Status: Acute Assessment and Plan: See above (6) H pylori ulcer: Code(s): K27.9 - Peptic ulcer, site unspecified, unspecified as acute or chronic, without hemorrhage or perforation; B96.81 - Helicobacter pylori [H. pylori] as the cause of diseases classified elsewhere Status: Acute Assessment and Plan: See above (7) Nausea & vomiting: Qualifiers: Vomiting Intractability: non-intractable Vomiting type: unspecified Q
[2021-07-31 15:08] VITALS: BP 125/75; PULSE 85; RESP 12; TEMP 36.9; O2SAT 100
== END 2021-07-31 15:20 | disposition home or self-care (01) | DRG 242 ==
LOC: ANHED 07-28 01:49 → ANH3MEDSUR 07-28 02:01
PROVIDERS: Emergency Medicine; Internal Medicine Gastroenterology; Physician Assistant; Admitting Provider Internal Medicine; Emergency Provider Emergency Medicine; Visit Provider Internal Medicine
PROC: 0DJ08ZZ Inspection of Upper Intestinal Tract, Via Natural or Artificial Opening Endoscopic (ICD-10-PCS; CPT 43235; principal; 2021-07-28 14:15)
DX: K22.11 Ulcer of esophagus with bleeding (principal); K21.01 Gastro-esophageal reflux disease with esophagitis, with bleeding; K25.4 Chronic or unspecified gastric ulcer with hemorrhage; K29.61 Other gastritis with bleeding; B96.81 Helicobacter pylori [H. pylori] as the cause of diseases classified elsewhere; I95.1 Orthostatic hypotension; F15.10 Other stimulant abuse, uncomplicated; N17.9 Acute kidney failure, unspecified; E11.22 Type 2 diabetes mellitus with diabetic chronic kidney disease; I12.9 Hypertensive chronic kidney disease with stage 1 through stage 4 chronic kidney disease, or unspecified chronic kidney disease; N18.9 Chronic kidney disease, unspecified; E11.42 Type 2 diabetes mellitus with diabetic polyneuropathy; F10.20 Alcohol dependence, uncomplicated; F17.210 Nicotine dependence, cigarettes, uncomplicated; E11.65 Type 2 diabetes mellitus with hyperglycemia; Z79.4 Long term (current) use of insulin
CPT/HCPCS: 36415; 36600; 74176; 80048; 80053; 80307; 81001; 82805; 82948; 83036; 83690; 83735; 84100; 85025; 85027; 87081; 88305; 93306; 96361; 96365; 96366; 96374; 96375; 96376; 99285; A9270; C9113; G0378; G0379; J0131; J1815; J2001; J2060; J2405; J2704; J3411; J3475; J7030; J7120